=== PATIENT | female | born 1950 | race Two or more races ===

== ENCOUNTER 2016-05-08 15:39 | Emergency (ER) | payer MEDICARE, MEDICAID ==
[~2016-05-08] VITALS: Ht 162.6 cm; Wt 124.7 kg
[~2016-05-08 15:39] MED LIST: ALBUAER3 IN; ALPR0.5T PO; ASPI81CH43 GT; BIOT10004 PO; CARB25TA3 OR; CARV25TA OR; CLON0.1T OR; CYCL5TAB89 OR; DIPH25TA26 PO; DOCU-94 PO; DONETAB6 PO; FLUT250M9 IN; GABA300C OR; HYDR-2549 OR; HYDR-2652 PO; INSULIN; LEV500T PO; LISI10TA6 PO; PAR20T PO; QUET100T38 OR; RANI150C11 PO; TEMA30CA5 OR
[2016-05-08] MEDS ORDERED: LORazepam 2MG/ML-1ML VIAL IV ONE (16:30)
[2016-05-08 17:37] LABS: Albumin 2.7 g/dL (3.4-5.0); BUN/Creatinine Ratio 11.7; Calcium 8.1 mg/dL (8.5-10.1); Magnesium 2.7 mg/dL (1.6-2.6); Potassium 3.2 mmol/L (3.5-5.1)
[2016-05-08 17:40] LABS: Bilirubin, Total 0.4 mg/dL (0.2-1.0); Total Protein 7.1 g/dL (6.4-8.2)
[2016-05-08 17:45] LABS: Basophils # (auto) 0.1 uL; Basophils % (auto) 0.5 % (0.0-2.0); Eosinophils # (auto) 0.1 uL; Eosinophils % (auto) 1.1 % (0.0-7.0); Hematocrit 32.9 % (36.0-46.0); Hemoglobin 10.2 g/dL (12.2-16.2); Lymphocytes # (auto) 3.5 uL; Lymphocytes % (auto) 34.3 % (10.0-50.0); Mean Corpuscular Hemoglobin 27.3 pg (28.0-32.0); Mean Platelet Volume 10.4 fL (7.4-10.4); Monocytes # (auto) 1.1 uL; Monocytes % (auto) 10.4 % (0.0-12.0); Neutrophils # (auto) 5.5 uL; Neutrophils % (auto) 53.7 % (37.0-80.0); Platelet Count (auto) 267 10^3/uL (140-450); Red Cell Distribution Width 16.9 % (11.6-16.0); SUSPECT VIEW TRANSMISSION; White Blood Cell 10.3 10^3/uL (4.4-10.8)
[2016-05-08 18:00] LABS: INR 1.13 (0.9-1.15); Partial Thromboplastin Time 24.3 sec (22.64-33.71); Prothrombin Time 11.6 sec (9.37-12.3)
[2016-05-08] MEDS ORDERED: HYDROcodone-ACET 10/325MG TAB PO ONE (18:00)
[2016-05-08] MEDS ORDERED: POTASSIUM CHL 20 Meq TABLET PO ONE ×2 (18:45→21:45)
[2016-05-08] MEDS ORDERED: KETOROLAC TROMETH 30 MG/ML 1ML VIAL IV ONE (21:45)
[2016-05-08] MEDS ORDERED: HYDROmorphone HCL 2 MG/ML VL IV ONE (21:45)
[2016-05-08 22:58] LABS: Urine Bilirubin Negative (Negative); Urine Blood Negative /uL (Negative); Urine Color Yellow (Yellow); Urine Glucose Normal (Normal); Urine Hyaline Cast MANY /lpf (0 - 2); Urine Ketone Negative (Negative); Urine Mucus FEW (None Seen); Urine Nitrite Negative (Negative); Urine RBC 2 /hpf (0 - 4); Urine Squamous Epithelial Cell MOD /hpf (<5); Urine Urobilinogen Normal (Negative); Urine pH 5.5 (5.0-8.0)
[2016-05-09 00:19] VITALS: BP 121/66
== END 2016-05-09 00:27 | disposition home or self-care (01) ==
LOC: ER 15:39
DX: F41.9 Anxiety disorder, unspecified (principal); D50.9 Iron deficiency anemia, unspecified; E87.6 Hypokalemia; E11.65 Type 2 diabetes mellitus with hyperglycemia; M54.9 Dorsalgia, unspecified; M19.90 Unspecified osteoarthritis, unspecified site; I25.10 Atherosclerotic heart disease of native coronary artery without angina pectoris; I50.9 Heart failure, unspecified; E11.22 Type 2 diabetes mellitus with diabetic chronic kidney disease; I13.0 Hypertensive heart and chronic kidney disease with heart failure and stage 1 through stage 4 chronic kidney disease, or unspecified chronic kidney disease; N18.9 Chronic kidney disease, unspecified; J44.9 Chronic obstructive pulmonary disease, unspecified; E78.5 Hyperlipidemia, unspecified; F17.210 Nicotine dependence, cigarettes, uncomplicated
CPT/HCPCS: 36415; 71010; 80053; 81001; 82962; 83735; 84484; 85025; 85610; 85730; 93005; 94761; 96374; 96375; 99285; G0434; J1170; J1885; J2060

== ENCOUNTER 2017-04-25 18:34 | Inpatient (IN) | payer MEDICARE, OTHER ==
[~2017-04-25] VITALS: Ht 165.1 cm; Wt 104.1 kg
[~2017-04-25 18:34] MED LIST changes: -HYDR-2652 PO; +HYDR50TA15 PO
[2017-04-25 19:14] LABS: Basophils # (auto) 0.1 uL; Basophils % (auto) 1.6 % (0.0-2.0); Eosinophils # (auto) 0.3 uL; Eosinophils % (auto) 4.1 % (0.0-7.0); Hematocrit 37.3 % (36.0-46.0); Hemoglobin 12.1 g/dL (12.2-16.2); Lymphocytes # (auto) 2.8 uL; Lymphocytes % (auto) 36.2 % (10.0-50.0); Mean Corpuscular Hemoglobin 29.4 pg (28.0-32.0); Mean Corpuscular Hgb Conc. 32.5 g/dL (32.0-36.0); Mean Corpuscular Volume 90.4 fL (80.0-100.0); Monocytes # (auto) 0.7 uL; Monocytes % (auto) 8.8 % (0.0-12.0); Neutrophils # (auto) 3.8 uL; Neutrophils % (auto) 49.3 % (37.0-80.0); Nucleated Red Blood Cells % 0.1 %; Platelet Count (auto) 273 10^3/uL (140-450); Red Blood Cells 4.12 10^6/uL (4.0-5.20); Red Cell Distribution Width 16.5 % (11.8-14.3); White Blood Cell 7.7 10^3/uL (4.4-10.8)
[2017-04-25 19:30] LABS: INR 0.97 (0.9-1.15); Partial Thromboplastin Time 24.9 sec (22.64-33.71); Prothrombin Time 10.6 sec (9.37-12.3)
[2017-04-25 19:31] LABS: Albumin 2.9 g/dL (3.4-5.0); BUN/Creatinine Ratio 15.2; Bilirubin, Total 0.4 mg/dL (0.2-1.0); Calcium 8.7 mg/dL (8.5-10.1); Potassium 3.3 mmol/L (3.5-5.1)
[2017-04-25] MEDS ORDERED: ASPirin 81 mg TAB PO ONE (20:15)
[2017-04-25] MEDS ORDERED: HYDROcodone-ACET 5/325MG TAB PO ONE (20:15)
[2017-04-25 21:18] LABS: Urine Bacteria FEW /hpf (None Seen); Urine Blood TRACE /uL (Negative); Urine Hyaline Cast FEW /lpf (0 - 2); Urine Specific Gravity 1.007 (1.001-1.035); Urine WBC 3 /hpf (0 - 5)
[2017-04-25 21:35] LABS: Alcohol, Urine < 3.0 mg/dL (0-5); Amphetamine Screen, Urine NEGATIVE (NEGATIVE); Barbiturate Scree,Urine NEGATIVE (NEGATIVE); Benzodiazephine Screen, Urine NEGATIVE (NEGATIVE); Cannabinoid Screen, Urine NEGATIVE (NEGATIVE); Cocaine Screen, Urine NEGATIVE (NEGATIVE); Opiate Scree,Urine NEGATIVE (NEGATIVE); Phencyclidine Screen, Urine NEGATIVE (NEGATIVE)
[2017-04-25] MEDS ORDERED: NALBUPHINE HCL 10 MG/1ml INJECTION IV ONE (23:45)
[2017-04-25] MEDS ORDERED: PANTOPRAZOLE 40 MG/10 ML VIAL IV ONE (23:45)
[2017-04-25] MEDS ORDERED: ONDANSETRON HCL 4 MG/2 ML VIAL IV ONE (23:45)
[2017-04-26] MEDS ORDERED: METOPROLOL TARTRATE 50 MG TAB PO ONE (00:15)
[2017-04-26] MEDS ORDERED: ACETAMINOPHEN 500 MG TAB PO PRN (03:00)
[2017-04-26] MEDS ORDERED: ONDANSETRON HCL 4 MG/2 ML VIAL IV PRN (03:00)
[2017-04-26] MEDS ORDERED: LABETALOL HCL 200 MG TAB PO ONE (03:15)
[2017-04-26 03:51] LABS: Basophils # (auto) 0.1 uL; Basophils % (auto) 1.4 % (0.0-2.0); Eosinophils # (auto) 0.4 uL; Hematocrit 33.5 % (36.0-46.0); Hemoglobin 11.2 g/dL (12.2-16.2); Lymphocytes # (auto) 3.9 uL; Lymphocytes % (auto) 38.8 % (10.0-50.0); Mean Corpuscular Hemoglobin 29.7 pg (28.0-32.0); Mean Corpuscular Hgb Conc. 33.3 g/dL (32.0-36.0); Mean Corpuscular Volume 89.1 fL (80.0-100.0); Monocytes % (auto) 9.6 % (0.0-12.0); Neutrophils # (auto) 4.6 uL; Neutrophils % (auto) 46.2 % (37.0-80.0); Nucleated Red Blood Cells % 0.1 %; Platelet Count (auto) 251 10^3/uL (140-450); Red Blood Cells 3.76 10^6/uL (4.0-5.20); Red Cell Distribution Width 16.7 % (11.8-14.3); White Blood Cell 10.1 10^3/uL (4.4-10.8)
[2017-04-26 04:06] LABS: BUN/Creatinine Ratio 18.2; Calcium 8.4 mg/dL (8.5-10.1); Potassium 3.4 mmol/L (3.5-5.1)
[2017-04-26] MEDS ORDERED: FUROSEMIDE 40 MG/4 ML VIAL IV ONE (04:45)
[2017-04-26] MEDS ORDERED: POTASSIUM CHL 20 Meq TABLET PO ONE ×2 (04:45→14:45)
[2017-04-26] MEDS ORDERED: DEXTROSE (50%) 50ML SYRG IV PRN (04:45)
[2017-04-26] MEDS: hydrALAZINE HCL 25 MG TAB PO SCH ×3 (06:00→22:02)
[2017-04-26] MEDS: HYDROcodone-ACET 5/325MG TAB PO PRN ×3 (06:04→22:15)
[2017-04-26] MEDS: cloNIDine HCL 0.1 MG TAB PO SCH ×3 (06:04→22:01)
[2017-04-26] MEDS ORDERED: ALUM & MAG HYDROX-SIMETH LIQ(MAALOX) 30 ML PO PRN (06:15)
[2017-04-26] MEDS: ACCU-CHEK COMFORT CURVE STRIP VI SCH ×4 (06:16→22:03)
[2017-04-26] MEDS: InsuLIN REG 1unit/0.01ml Soln (100units/ml) SC SCH ×4 (06:16→22:08)
[2017-04-26] MEDS: CARVEDILOL 3.125 MG TAB PO SCH ×2 (09:56→22:02)
[2017-04-26] MEDS: ASPirin-EC 81 mg tab PO SCH (09:57)
[2017-04-26] MEDS: LISINOPRIL 10 MG TAB PO SCH (09:59)
[2017-04-26] MEDS ORDERED: LISINOPRIL 5 MG TAB ONE (09:59)
[2017-04-26] MEDS ORDERED: LORA-654 PO (14:03)
[2017-04-26] MEDS ORDERED: FURO20TA3 PO (14:03)
[2017-04-26] MEDS ORDERED: HYDR25TA35 PO (14:03)
[2017-04-26] MEDS ORDERED: IBUP800T24 PO (14:03)
[2017-04-26] MEDS ORDERED: CLOP75TA41 PO (14:03)
[2017-04-26] MEDS ORDERED: TEMA30CA PO (14:03)
[2017-04-26 17:22] VITALS: BP 141/66
[2017-04-26] MEDS: ALUM & MAG HYDROX-SIMETH LIQ(MAALOX) 30 ML PO PRN (17:43)
[2017-04-26 20:00] VITALS: BP 126/79
[2017-04-26 22:00] VITALS: BP 126/79
[2017-04-26] MEDS: DONEPEZIL HYDROCHLORIDE 5 MG TAB PO SCH (22:03)
[2017-04-26] MEDS: CARBIDOPA W LEVODOPA 25/100mg TABLET PO SCH (22:04)
[2017-04-26] MEDS: TEMAZEPAM 15 MG CAP PO PRN (22:15)
[2017-04-27 05:46] VITALS: BP 147/64
[2017-04-27] MEDS: hydrALAZINE HCL 25 MG TAB PO SCH ×3 (05:50→21:32)
[2017-04-27] MEDS: cloNIDine HCL 0.1 MG TAB PO SCH ×3 (05:50→21:29)
[2017-04-27] MEDS: LORazepam 0.5 MG TAB PO PRN ×2 (05:50→20:42)
[2017-04-27] MEDS: CARBIDOPA W LEVODOPA 25/100mg TABLET PO SCH ×3 (05:51→21:32)
[2017-04-27] MEDS: InsuLIN REG 1unit/0.01ml Soln (100units/ml) SC SCH ×4 (05:55→21:33)
[2017-04-27] MEDS: ACCU-CHEK COMFORT CURVE STRIP VI SCH ×4 (05:55→21:33)
[2017-04-27 06:51] LABS: Basophils # (auto) 0.1 uL; Basophils % (auto) 1.1 % (0.0-2.0); Eosinophils # (auto) 0.3 uL; Eosinophils % (auto) 3.7 % (0.0-7.0); Hematocrit 36.6 % (36.0-46.0); Hemoglobin 11.7 g/dL (12.2-16.2); Lymphocytes % (auto) 37.7 % (10.0-50.0); Mean Corpuscular Hemoglobin 29.2 pg (28.0-32.0); Mean Corpuscular Volume 91.1 fL (80.0-100.0); Monocytes # (auto) 0.7 uL; Monocytes % (auto) 8.5 % (0.0-12.0); Neutrophils # (auto) 3.9 uL; Nucleated Red Blood Cells % 0.1 %; Platelet Count (auto) 246 10^3/uL (140-450); Red Blood Cells 4.02 10^6/uL (4.0-5.20); Red Cell Distribution Width 16.9 % (11.8-14.3); White Blood Cell 7.8 10^3/uL (4.4-10.8)
[2017-04-27] MEDS: ALUM & MAG HYDROX-SIMETH LIQ(MAALOX) 30 ML PO PRN (07:00)
[2017-04-27 07:08] LABS: BUN/Creatinine Ratio 21.2; Magnesium 2.2 mg/dL (1.6-2.6); Potassium 4.3 mmol/L (3.5-5.1)
[2017-04-27 07:45] VITALS: BP 144/76
[2017-04-27] MEDS: CLOPIDOGREL BISULFATE 75 MG TAB PO SCH (10:22)
[2017-04-27] MEDS: CARVEDILOL 3.125 MG TAB PO SCH ×2 (10:23→21:31)
[2017-04-27] MEDS: LISINOPRIL 10 MG TAB PO SCH (10:23)
[2017-04-27] MEDS ORDERED: IOHEXOL 350 MG/ML 100ML IJ ONE (10:42)
[2017-04-27] MEDS ORDERED: LIDOCAINE 2%HCL (LOCAL ANESTH.) INJ 20ML MDV ONE (10:42)
[2017-04-27] MEDS ORDERED: SODIUM CHL 0.9% 50 ML ONE (11:06)
[2017-04-27] MEDS ORDERED: fentaNYL CITRATE 100 MCG/2 ML VL ONE (11:06)
[2017-04-27] MEDS ORDERED: MIDAZOLAM HCL 1MG/1ML-2 ML VIAL ONE (11:06)
[2017-04-27] MEDS ORDERED: ANGIOMAX 250 MG VIAL IV ONE (11:07)
[2017-04-27] MEDS ORDERED: ATROPINE SULF 0.5 MG/5ML SYR ONE (11:26)
[2017-04-27 12:00] VITALS: BP 156/83
[2017-04-27] MEDS: ASPirin-EC 81 mg tab PO SCH (14:15)
[2017-04-27] MEDS: FUROSEMIDE 40 MG/4 ML VIAL IV SCH (14:17)
[2017-04-27 16:57] VITALS: BP 154/59
[2017-04-27] MEDS: TEMAZEPAM 15 MG CAP PO PRN (21:22)
[2017-04-27] MEDS: DONEPEZIL HYDROCHLORIDE 5 MG TAB PO SCH (21:32)
[2017-04-27 22:00] VITALS: BP 136/95
[2017-04-27] MEDS: HYDROcodone-ACET 5/325MG TAB PO PRN (23:10)
[2017-04-28] MEDS: ALUM & MAG HYDROX-SIMETH LIQ(MAALOX) 30 ML PO PRN (02:19)
[2017-04-28 05:24] VITALS: BP 146/69
[2017-04-28] MEDS: CARBIDOPA W LEVODOPA 25/100mg TABLET PO SCH (06:16)
[2017-04-28] MEDS: hydrALAZINE HCL 25 MG TAB PO SCH (06:17)
[2017-04-28] MEDS: InsuLIN REG 1unit/0.01ml Soln (100units/ml) SC SCH ×2 (06:18→12:40)
[2017-04-28] MEDS: cloNIDine HCL 0.1 MG TAB PO SCH (06:18)
[2017-04-28] MEDS: LORazepam 0.5 MG TAB PO PRN (06:20)
[2017-04-28] MEDS: ACCU-CHEK COMFORT CURVE STRIP VI SCH ×2 (06:22→12:40)
[2017-04-28 08:00] VITALS: BP 163/77
[2017-04-28] MEDS: FUROSEMIDE 40 MG/4 ML VIAL IV SCH (10:00)
[2017-04-28] MEDS: LISINOPRIL 10 MG TAB PO SCH (10:36)
[2017-04-28] MEDS: ASPirin-EC 81 mg tab PO SCH (10:36)
[2017-04-28] MEDS: CLOPIDOGREL BISULFATE 75 MG TAB PO SCH (10:37)
[2017-04-28] MEDS: CARVEDILOL 3.125 MG TAB PO SCH (10:37)
[2017-04-28 12:00] VITALS: BP 154/74
== END 2017-04-28 14:00 | disposition home health service (06) | DRG 246 ==
LOC: ER 18:34 → TELE 18:35 → WEST WING 04-26 13:14 → TELE-WESTW 04-26 14:40
PROVIDERS: ADMIT Nurse Practitioner Family; ATTEND Nurse Practitioner Acute Care
PROC: 027034Z Dilation of Coronary Artery, One Artery with Drug-eluting Intraluminal Device, Percutaneous Approach (ICD-10-PCS; principal; 2017-04-27)
PROC: 4A023N7 Measurement of Cardiac Sampling and Pressure, Left Heart, Percutaneous Approach (ICD-10-PCS; 2017-04-27)
PROC: B2151ZZ Fluoroscopy of Left Heart using Low Osmolar Contrast (ICD-10-PCS; 2017-04-27)
DX: I21.4 Non-ST elevation (NSTEMI) myocardial infarction (principal); I50.33 Acute on chronic diastolic (congestive) heart failure; E11.22 Type 2 diabetes mellitus with diabetic chronic kidney disease; E11.42 Type 2 diabetes mellitus with diabetic polyneuropathy; I13.0 Hypertensive heart and chronic kidney disease with heart failure and stage 1 through stage 4 chronic kidney disease, or unspecified chronic kidney disease; I25.10 Atherosclerotic heart disease of native coronary artery without angina pectoris; E87.6 Hypokalemia; E03.9 Hypothyroidism, unspecified; E11.65 Type 2 diabetes mellitus with hyperglycemia; E66.9 Obesity, unspecified; Z68.38 Body mass index [BMI] 38.0-38.9, adult; E78.5 Hyperlipidemia, unspecified; F03.90 Unspecified dementia, unspecified severity, without behavioral disturbance, psychotic disturbance, mood disturbance, and anxiety; F17.210 Nicotine dependence, cigarettes, uncomplicated; F20.9 Schizophrenia, unspecified; F32.9 Major depressive disorder, single episode, unspecified; G20 Parkinson's disease; G47.33 Obstructive sleep apnea (adult) (pediatric); G89.29 Other chronic pain; B19.20 Unspecified viral hepatitis C without hepatic coma; M19.90 Unspecified osteoarthritis, unspecified site; M54.5 Low back pain; R26.81 Unsteadiness on feet; K74.60 Unspecified cirrhosis of liver; E78.00 Pure hypercholesterolemia, unspecified; J44.9 Chronic obstructive pulmonary disease, unspecified; N18.9 Chronic kidney disease, unspecified; R29.6 Repeated falls; G47.00 Insomnia, unspecified; F41.9 Anxiety disorder, unspecified; Z53.21 Procedure and treatment not carried out due to patient leaving prior to being seen by health care provider; F40.240 Claustrophobia; R56.9 Unspecified convulsions; Z79.02 Long term (current) use of antithrombotics/antiplatelets; Z79.82 Long term (current) use of aspirin; Z79.899 Other long term (current) drug therapy; Z82.49 Family history of ischemic heart disease and other diseases of the circulatory system; Z83.3 Family history of diabetes mellitus; Z90.81 Acquired absence of spleen; Z95.1 Presence of aortocoronary bypass graft; Z88.5 Allergy status to narcotic agent; Z95.5 Presence of coronary angioplasty implant and graft; Z84.1 Family history of disorders of kidney and ureter
CPT/HCPCS: 36415; 70450; 71046; 80048; 80053; 80307; 81001; 82962; 83735; 83880; 84100; 84484; 85025; 85610; 85730; 86850; 86900; 86901; 87081; 92928; 93005; 93306; 93458; 94761; 96372; 96374; 96375; 99152; C1874; C1887; C9113; J0461; J1815; J2250; J2405

== ENCOUNTER 2017-07-14 13:10 | Inpatient (IN) | payer MEDICARE, OTHER ==
[~2017-07-14] VITALS: Ht 162.6 cm; Wt 106.5 kg
[~2017-07-14 13:10] MED LIST changes: -ALPR0.5T PO; +CLOP75TA41 PO; -DOCU-94 PO; +FURO20TA3 PO; +HYDR25TA35 PO; -HYDR50TA15 PO; +IBUP800T24 PO; -LISI10TA6 PO; +LORA-654 PO; -QUET100T38 OR; +TEMA30CA PO; -TEMA30CA5 OR
[2017-07-14 13:46] LABS: Basophils # (auto) 0.1 uL; Basophils % (auto) 1.1 % (0.0-2.0); Eosinophils # (auto) 0.2 uL; Eosinophils % (auto) 2.5 % (0.0-7.0); Hematocrit 38.1 % (36.0-46.0); Hemoglobin 12.5 g/dL (12.2-16.2); Lymphocytes # (auto) 2.5 uL; Lymphocytes % (auto) 33.5 % (10.0-50.0); Mean Corpuscular Hemoglobin 29.6 pg (28.0-32.0); Mean Corpuscular Hgb Conc. 32.8 g/dL (32.0-36.0); Mean Corpuscular Volume 90.4 fL (80.0-100.0); Monocytes # (auto) 0.7 uL; Neutrophils % (auto) 53.9 % (37.0-80.0); Platelet Count (auto) 247 10^3/uL (140-450); Red Blood Cells 4.21 10^6/uL (4.0-5.20); Red Cell Distribution Width 15.1 % (11.8-14.3); White Blood Cell 7.5 10^3/uL (4.4-10.8)
[2017-07-14 14:02] LABS: INR 0.98 (0.9-1.15); Partial Thromboplastin Time 22.6 sec (22.64-33.71); Prothrombin Time 10.7 sec (9.37-12.3)
[2017-07-14 14:10] LABS: Albumin 2.5 g/dL (3.4-5.0); BUN/Creatinine Ratio 12.4; Bilirubin, Total 0.3 mg/dL (0.2-1.0); Calcium 8.7 mg/dL (8.5-10.1); Potassium 3.7 mmol/L (3.5-5.1); Total Protein 7.3 g/dL (6.4-8.2)
[2017-07-14] MEDS ORDERED: ALBUTEROL SULF 2.5 MG/0.5ML(0.5%) NEB SOLN NEB PRN (15:45)
[2017-07-14] MEDS ORDERED: ACETAMINOPHEN 500 MG TAB PO PRN (15:45)
[2017-07-14] MEDS ORDERED: DEXTROSE (50%) 50ML SYRG IV PRN (15:45)
[2017-07-14] MEDS ORDERED: TEMAZEPAM 15 MG CAP PO PRN (15:45)
[2017-07-14] MEDS ORDERED: NITROGLYCERIN 0.4 MG SL TAB SL PRN (15:45)
[2017-07-14] MEDS: SODIUM CHLOR 0.9% PF (SALINE LOCK) 10ML VIAL/SYR IV SCH (15:59)
[2017-07-14] MEDS ORDERED: CARV6.2551 PO (16:04)
[2017-07-14] MEDS: FUROSEMIDE 40 MG/4 ML VIAL IV SCH (16:04)
[2017-07-14] MEDS: HYDROcodone-ACET 5/325MG TAB PO PRN (16:17)
[2017-07-14] MEDS: ENOXAPARIN SOD 40 MG/0.4 ML SYRINGE SC SCH (16:17)
[2017-07-14] MEDS: ENALAPRIL MALEATE 2.5 MG TAB PO SCH (16:17)
[2017-07-14 17:00] LABS: Amylase 41 U/L (25-115); Lipase 111 U/L (73-393)
[2017-07-14] MEDS: ACCU-CHEK COMFORT CURVE STRIP VI SCH ×2 (17:57→21:48)
[2017-07-14] MEDS ORDERED: PATIENTS OWN MEDICATION (Albuterol Sulfate (Ventolin Mdi) 90 MCG) IN SCH (18:00)
[2017-07-14] MEDS: InsuLIN REG 1unit/0.01ml Soln (100units/ml) SC SCH ×2 (18:02→21:49)
[2017-07-14] MEDS: ALBUTEROL SULF 2.5 MG/0.5ML(0.5%) NEB SOLN NEB SCH (18:33)
[2017-07-14] MEDS: BUDESONIDE (INHALATION) 0.5 MG/2 ML NEB NEB SCH (18:33)
[2017-07-14] MEDS: IPRATROPIUM BROM 0.5 MG/2.5ML INH SOL NEB SCH (18:33)
[2017-07-14] MEDS: hydrALAZINE HCL 25 MG TAB PO SCH (21:46)
[2017-07-14] MEDS: LORazepam 0.5 MG TAB PO SCH (21:47)
[2017-07-14] MEDS: ATORVASTATIN 20 MG TAB PO SCH (21:47)
[2017-07-14] MEDS: HYDROmorphone HCL 2 MG/ML VL IV PRN ×2 (21:47→22:43)
[2017-07-14] MEDS: CARVEDILOL 3.125 MG TAB PO SCH (21:47)
[2017-07-14] MEDS: DONEPEZIL HYDROCHLORIDE 5 MG TAB PO SCH (21:47)
[2017-07-14] MEDS: CARBIDOPA W LEVODOPA 25/100mg TABLET PO SCH (21:48)
[2017-07-14] MEDS: GABAPENTIN 300 MG CAP PO SCH (21:48)
[2017-07-14 22:00] VITALS: BP 167/107
[2017-07-14] MEDS ORDERED: PATIENTS OWN MEDICATION IN SCH (22:00)
[2017-07-14 23:15] VITALS: BP 167/107
[2017-07-15] MEDS: ALBUTEROL SULF 2.5 MG/0.5ML(0.5%) NEB SOLN NEB SCH ×4 (01:55→18:27)
[2017-07-15] MEDS: IPRATROPIUM BROM 0.5 MG/2.5ML INH SOL NEB SCH ×4 (01:55→18:27)
[2017-07-15] MEDS: HYDROmorphone HCL 2 MG/ML VL IV PRN ×2 (02:02→09:59)
[2017-07-15 03:46] VITALS: BP 164/107
[2017-07-15 05:00] VITALS: BP 186/95
[2017-07-15] MEDS: hydrALAZINE HCL 25 MG TAB PO SCH ×3 (06:30→21:48)
[2017-07-15] MEDS: LORazepam 0.5 MG TAB PO SCH ×3 (06:30→21:49)
[2017-07-15] MEDS: SODIUM CHLOR 0.9% PF (SALINE LOCK) 10ML VIAL/SYR IV SCH ×3 (06:31→21:48)
[2017-07-15] MEDS: GABAPENTIN 300 MG CAP PO SCH ×3 (06:31→21:49)
[2017-07-15] MEDS: CARBIDOPA W LEVODOPA 25/100mg TABLET PO SCH ×3 (06:31→21:50)
[2017-07-15] MEDS: ACCU-CHEK COMFORT CURVE STRIP VI SCH ×4 (06:45→21:50)
[2017-07-15] MEDS: InsuLIN REG 1unit/0.01ml Soln (100units/ml) SC SCH ×4 (06:45→22:07)
[2017-07-15 08:23] LABS: BUN/Creatinine Ratio 16.1; Bilirubin, Total 0.3 mg/dL (0.2-1.0); Calcium 8.7 mg/dL (8.5-10.1); Potassium 3.6 mmol/L (3.5-5.1); Total Protein 7.1 g/dL (6.4-8.2)
[2017-07-15 08:24] LABS: Albumin 2.6 g/dL (3.4-5.0)
[2017-07-15 08:52] VITALS: BP 150/93
[2017-07-15] MEDS: CLOPIDOGREL BISULFATE 75 MG TAB PO SCH (09:26)
[2017-07-15] MEDS: POTASSIUM CHL 20 Meq TABLET PO SCH (09:26)
[2017-07-15] MEDS: ENOXAPARIN SOD 40 MG/0.4 ML SYRINGE SC SCH (09:26)
[2017-07-15] MEDS: ASPirin 81 mg TAB PO SCH (09:26)
[2017-07-15] MEDS: CYCLOBENZAPRINE HCL 10 MG TAB PO SCH (09:27)
[2017-07-15] MEDS: PARoxetine 20 MG TAB PO SCH (09:30)
[2017-07-15] MEDS: CARVEDILOL 3.125 MG TAB PO SCH ×2 (09:30→21:49)
[2017-07-15] MEDS: FUROSEMIDE 40 MG/4 ML VIAL IV SCH (09:31)
[2017-07-15] MEDS: ENALAPRIL MALEATE 2.5 MG TAB PO SCH (09:31)
[2017-07-15] MEDS: BIOTIN 10000 MCG PO SCH (09:31)
[2017-07-15] MEDS: BUDESONIDE (INHALATION) 0.5 MG/2 ML NEB NEB SCH ×2 (09:59→18:27)
[2017-07-15] MEDS ORDERED: CARVEDILOL 6.25 MG OR SCH (10:00)
[2017-07-15] MEDS ORDERED: CYCLOBENZAPRINE HCL 5 MG OR SCH (10:00)
[2017-07-15] MEDS ORDERED: FUROSEMIDE 20 MG TAB PO SCH (10:00)
[2017-07-15] MEDS ORDERED: PATIENTS OWN MEDICATION (Donepezil Hydrochloride (Donepezil Hcl) 10 MG) PO SCH (10:00)
[2017-07-15] MEDS: PROMETHAZINE HCL 25 MG/ML 1ML IV PRN (11:52)
[2017-07-15 13:17] VITALS: BP 130/77
[2017-07-15] MEDS: HYDROcodone-ACET 5/325MG TAB PO PRN ×2 (14:42→20:55)
[2017-07-15 17:21] VITALS: BP 130/53
[2017-07-15] MEDS: DONEPEZIL HYDROCHLORIDE 5 MG TAB PO SCH (21:48)
[2017-07-15] MEDS: ATORVASTATIN 20 MG TAB PO SCH (21:49)
[2017-07-15 22:00] VITALS: BP 129/78
[2017-07-16 03:14] VITALS: BP 137/58
[2017-07-16 05:30] VITALS: BP 137/58
[2017-07-16] MEDS: SODIUM CHLOR 0.9% PF (SALINE LOCK) 10ML VIAL/SYR IV SCH ×3 (06:01→21:32)
[2017-07-16] MEDS: hydrALAZINE HCL 25 MG TAB PO SCH (06:01)
[2017-07-16] MEDS: CARBIDOPA W LEVODOPA 25/100mg TABLET PO SCH ×3 (06:02→21:34)
[2017-07-16] MEDS: ACCU-CHEK COMFORT CURVE STRIP VI SCH ×4 (06:02→21:34)
[2017-07-16] MEDS: GABAPENTIN 300 MG CAP PO SCH ×3 (06:02→21:32)
[2017-07-16] MEDS: LORazepam 0.5 MG TAB PO SCH ×3 (06:02→21:33)
[2017-07-16] MEDS: InsuLIN REG 1unit/0.01ml Soln (100units/ml) SC SCH ×4 (06:16→21:34)
[2017-07-16] MEDS: IPRATROPIUM BROM 0.5 MG/2.5ML INH SOL NEB SCH ×5 (07:10→22:58)
[2017-07-16] MEDS: ALBUTEROL SULF 2.5 MG/0.5ML(0.5%) NEB SOLN NEB SCH ×3 (07:10→12:17)
[2017-07-16] MEDS: BUDESONIDE (INHALATION) 0.5 MG/2 ML NEB NEB SCH ×2 (07:10→22:59)
[2017-07-16 08:58] VITALS: BP 154/105
[2017-07-16] MEDS: PROMETHAZINE HCL 25 MG/ML 1ML IV PRN (09:53)
[2017-07-16] MEDS: FUROSEMIDE 40 MG/4 ML VIAL IV SCH (09:53)
[2017-07-16] MEDS: ENOXAPARIN SOD 40 MG/0.4 ML SYRINGE SC SCH (09:57)
[2017-07-16] MEDS: BIOTIN 10000 MCG PO SCH (09:59)
[2017-07-16] MEDS: ASPirin 81 mg TAB PO SCH (09:59)
[2017-07-16] MEDS: CYCLOBENZAPRINE HCL 10 MG TAB PO SCH (10:00)
[2017-07-16] MEDS: CARVEDILOL 3.125 MG TAB PO SCH ×2 (10:00→21:41)
[2017-07-16] MEDS: POTASSIUM CHL 20 Meq TABLET PO SCH (10:01)
[2017-07-16] MEDS: PARoxetine 20 MG TAB PO SCH (10:01)
[2017-07-16] MEDS: ENALAPRIL MALEATE 2.5 MG TAB PO SCH (10:02)
[2017-07-16] MEDS: CLOPIDOGREL BISULFATE 75 MG TAB PO SCH (10:02)
[2017-07-16] MEDS: HYDROcodone-ACET 5/325MG TAB PO PRN (10:03)
[2017-07-16 11:06] LABS: Urine Bacteria FEW /hpf (None Seen); Urine Blood Negative /uL (Negative); Urine Hyaline Cast MOD /lpf (0 - 2); Urine Mucus FEW (None Seen); Urine Specific Gravity 1.019 (1.001-1.035); Urine WBC 40 /hpf (0 - 5)
[2017-07-16] MEDS ORDERED: cefTRIAXone 1GM/10ml IVPUSH 10 ML IV ONE (11:30)
[2017-07-16] MEDS ORDERED: POTASSIUM CHL 20 Meq TABLET PO ONE (13:15)
[2017-07-16] MEDS ORDERED: CARVEDILOL 3.125 MG TAB PO ONE (13:15)
[2017-07-16] MEDS ORDERED: FUROSEMIDE 40 MG/4 ML VIAL IV ONE (13:15)
[2017-07-16 17:01] VITALS: BP 154/74
[2017-07-16] MEDS: HYDROmorphone HCL 2 MG/ML VL IV PRN ×2 (19:59→23:59)
[2017-07-16] MEDS: DONEPEZIL HYDROCHLORIDE 5 MG TAB PO SCH (21:33)
[2017-07-16] MEDS ORDERED: ATORVASTATIN 20 MG TAB PO SCH (22:00)
[2017-07-16 22:06] VITALS: BP 186/90
[2017-07-17] MEDS ORDERED: cloNIDine HCL 0.1 MG TAB PO ONE (01:00)
[2017-07-17 04:33] VITALS: BP 162/80
[2017-07-17] MEDS: IPRATROPIUM BROM 0.5 MG/2.5ML INH SOL NEB SCH ×2 (05:57→11:04)
[2017-07-17] MEDS: BUDESONIDE (INHALATION) 0.5 MG/2 ML NEB NEB SCH (05:59)
[2017-07-17] MEDS: LORazepam 0.5 MG TAB PO SCH ×2 (06:06→14:52)
[2017-07-17] MEDS: SODIUM CHLOR 0.9% PF (SALINE LOCK) 10ML VIAL/SYR IV SCH ×2 (06:06→14:52)
[2017-07-17] MEDS: GABAPENTIN 300 MG CAP PO SCH ×2 (06:07→14:53)
[2017-07-17] MEDS: CARBIDOPA W LEVODOPA 25/100mg TABLET PO SCH ×2 (06:07→14:53)
[2017-07-17] MEDS: cloNIDine HCL 0.1 MG TAB PO SCH ×2 (06:07→14:53)
[2017-07-17] MEDS: InsuLIN REG 1unit/0.01ml Soln (100units/ml) SC SCH ×2 (06:20→11:56)
[2017-07-17] MEDS: HYDROmorphone HCL 2 MG/ML VL IV PRN ×2 (06:20→12:39)
[2017-07-17] MEDS: ACCU-CHEK COMFORT CURVE STRIP VI SCH ×2 (06:21→11:46)
[2017-07-17] MEDS: HYDROcodone-ACET 5/325MG TAB PO PRN (08:53)
[2017-07-17 09:00] VITALS: BP 130/71
[2017-07-17] MEDS ORDERED: cefTRIAXone 1GM/10ml IVPUSH 10 ML IV SCH (09:00)
[2017-07-17] MEDS: ENOXAPARIN SOD 40 MG/0.4 ML SYRINGE SC SCH (10:27)
[2017-07-17] MEDS: ENALAPRIL MALEATE 2.5 MG TAB PO SCH (10:30)
[2017-07-17] MEDS: CLOPIDOGREL BISULFATE 75 MG TAB PO SCH (10:31)
[2017-07-17] MEDS: ASPirin 81 mg TAB PO SCH (10:31)
[2017-07-17] MEDS: POTASSIUM CHL 20 Meq TABLET PO SCH (10:32)
[2017-07-17] MEDS: CYCLOBENZAPRINE HCL 10 MG TAB PO SCH (10:32)
[2017-07-17] MEDS: FUROSEMIDE 40 MG/4 ML VIAL IV SCH (10:33)
[2017-07-17] MEDS: CARVEDILOL 3.125 MG TAB PO SCH (10:34)
[2017-07-17] MEDS: PARoxetine 20 MG TAB PO SCH (10:35)
[2017-07-17] MEDS: BIOTIN 10000 MCG PO SCH (10:43)
[2017-07-17 11:34] VITALS: BP 130/71
[2017-07-17] MEDS: PROMETHAZINE HCL 25 MG/ML 1ML IV PRN (12:39)
[2017-07-17 13:00] VITALS: BP 126/90
== END 2017-07-17 15:20 | disposition home health service (06) | DRG 291 ==
LOC: EDBD 13:10 → ER 13:10 → EDUNIT# 13:10 → TELE 13:11 → TELE-CENTR 20:27
PROVIDERS: ADMIT Internal Medicine; ATTEND Family Medicine
DX: I13.0 Hypertensive heart and chronic kidney disease with heart failure and stage 1 through stage 4 chronic kidney disease, or unspecified chronic kidney disease (principal); I50.43 Acute on chronic combined systolic (congestive) and diastolic (congestive) heart failure; E11.22 Type 2 diabetes mellitus with diabetic chronic kidney disease; E11.42 Type 2 diabetes mellitus with diabetic polyneuropathy; J44.1 Chronic obstructive pulmonary disease with (acute) exacerbation; N39.0 Urinary tract infection, site not specified; Z68.41 Body mass index [BMI] 40.0-44.9, adult; I50.30 Unspecified diastolic (congestive) heart failure; G20 Parkinson's disease; Z99.81 Dependence on supplemental oxygen; I25.10 Atherosclerotic heart disease of native coronary artery without angina pectoris; E66.01 Morbid (severe) obesity due to excess calories; N18.9 Chronic kidney disease, unspecified; E78.00 Pure hypercholesterolemia, unspecified; F32.9 Major depressive disorder, single episode, unspecified; F17.210 Nicotine dependence, cigarettes, uncomplicated; D64.9 Anemia, unspecified; E78.5 Hyperlipidemia, unspecified; F41.9 Anxiety disorder, unspecified; M19.90 Unspecified osteoarthritis, unspecified site; M54.9 Dorsalgia, unspecified; G89.29 Other chronic pain; I25.2 Old myocardial infarction; Z82.49 Family history of ischemic heart disease and other diseases of the circulatory system; Z83.3 Family history of diabetes mellitus; Z90.81 Acquired absence of spleen; Z91.19 Patient's noncompliance with other medical treatment and regimen; Z95.5 Presence of coronary angioplasty implant and graft; Z88.5 Allergy status to narcotic agent; R07.89 Other chest pain
CPT/HCPCS: 36415; 71045; 74176; 80053; 80061; 81001; 82150; 82550; 82962; 83036; 83690; 83735; 83880; 84443; 84484; 85025; 85610; 85730; 87040; 87081; 87086; 93005; 94640; 99291; J1815

== ENCOUNTER → 2017-08-18 | Outpatient (CLI) | payer MEDICARE, OTHER ==
[~2017-08-18] MED LIST changes: -CARV25TA OR; +CARV6.2551 PO
[2017-08-18 12:11] LABS: Urine Bacteria FEW /hpf (None Seen); Urine Blood 1+ /uL (Negative); Urine Specific Gravity 1.016 (1.001-1.035); Urine WBC 58 /hpf (0 - 5)
[2017-08-18 12:16] LABS: Basophils # (auto) 0.1 uL; Basophils % (auto) 1.1 % (0.0-2.0); Eosinophils # (auto) 0.3 uL; Eosinophils % (auto) 3.4 % (0.0-7.0); Hematocrit 37.4 % (36.0-46.0); Hemoglobin 12.2 g/dL (12.2-16.2); Lymphocytes # (auto) 2.5 uL; Lymphocytes % (auto) 32.7 % (10.0-50.0); Mean Corpuscular Hemoglobin 29.3 pg (28.0-32.0); Mean Corpuscular Hgb Conc. 32.6 g/dL (32.0-36.0); Mean Corpuscular Volume 89.6 fL (80.0-100.0); Monocytes # (auto) 0.6 uL; Neutrophils # (auto) 4.1 uL; Neutrophils % (auto) 54.8 % (37.0-80.0); Platelet Count (auto) 254 10^3/uL (140-450); Red Blood Cells 4.17 10^6/uL (4.0-5.20); White Blood Cell 7.5 10^3/uL (4.4-10.8)
[2017-08-18 13:39] LABS: Albumin 2.6 g/dL (3.4-5.0); BUN/Creatinine Ratio 15.1; Bilirubin, Total 0.5 mg/dL (0.2-1.0); Calcium 8.4 mg/dL (8.5-10.1); Potassium 3.6 mmol/L (3.5-5.1); Total Protein 7.8 g/dL (6.4-8.2)
== END | disposition home or self-care (01) ==
LOC: LAB 11:39
PROVIDERS: ATTEND Nurse Practitioner
DX: E11.22 Type 2 diabetes mellitus with diabetic chronic kidney disease (principal); I12.9 Hypertensive chronic kidney disease with stage 1 through stage 4 chronic kidney disease, or unspecified chronic kidney disease; N18.9 Chronic kidney disease, unspecified; E78.5 Hyperlipidemia, unspecified; F17.210 Nicotine dependence, cigarettes, uncomplicated
CPT/HCPCS: 36415; 80053; 80061; 81001; 82043; 83036; 85025

== ENCOUNTER 2017-12-10 11:50 | Inpatient (IN) | payer MEDICARE, OTHER ==
[~2017-12-10] VITALS: Ht 165.1 cm; Wt 100.3 kg
[~2017-12-10 11:50] MED LIST changes: +HYDR-4296 PO; -HYDR25TA35 PO
[2017-12-10] MEDS ORDERED: ASPirin 81 mg TAB PO ONE (12:15)
[2017-12-10 13:51] LABS: Basophils # (auto) 0 uL; Basophils % (auto) 0.5 % (0.0-2.0); Eosinophils # (auto) 0.3 uL; Eosinophils % (auto) 4.4 % (0.0-7.0); Hematocrit 32.5 % (36.0-46.0); Lymphocytes # (auto) 2.1 uL; Lymphocytes % (auto) 29.1 % (10.0-50.0); Mean Corpuscular Hemoglobin 31.7 pg (28.0-32.0); Mean Corpuscular Hgb Conc. 33.7 g/dL (32.0-36.0); Mean Corpuscular Volume 93.9 fL (80.0-100.0); Monocytes # (auto) 0.6 uL; Monocytes % (auto) 9.2 % (0.0-12.0); Neutrophils % (auto) 56.8 % (37.0-80.0); Platelet Count (auto) 253 10^3/uL (140-450); Red Blood Cells 3.46 10^6/uL (4.0-5.20); Red Cell Distribution Width 15.7 % (11.8-14.3); White Blood Cell 7.1 10^3/uL (4.4-10.8)
[2017-12-10 14:13] LABS: BUN/Creatinine Ratio 16.8; Bilirubin, Total 0.4 mg/dL (0.2-1.0); Calcium 8.4 mg/dL (8.5-10.1); Magnesium 2.6 mg/dL (1.6-2.6); Potassium 3.9 mmol/L (3.5-5.1); Total Protein 7.6 g/dL (6.4-8.2)
[2017-12-10 15:57] LABS: Alcohol, Urine < 3.0 mg/dL (0-5); Amphetamine Screen, Urine NEGATIVE (NEGATIVE); Barbiturate Scree,Urine NEGATIVE (NEGATIVE); Benzodiazephine Screen, Urine NEGATIVE (NEGATIVE); Cannabinoid Screen, Urine NEGATIVE (NEGATIVE); Cocaine Screen, Urine NEGATIVE (NEGATIVE); Opiate Scree,Urine NEGATIVE (NEGATIVE); Phencyclidine Screen, Urine NEGATIVE (NEGATIVE)
[2017-12-10] MEDS ORDERED: HYDROmorphone HCL 2 MG/ML VL IV ONE (16:15)
[2017-12-10] MEDS ORDERED: ONDANSETRON HCL 4 MG/2 ML VIAL IV ONE (16:15)
[2017-12-10] MEDS ORDERED: DEXTROSE (50%) 50ML SYRG IV PRN (17:15)
[2017-12-10] MEDS ORDERED: cloNIDine HCL 0.1 MG TAB PO ONE (18:00)
[2017-12-10] MEDS ORDERED: FUROSEMIDE 40 MG TAB PO ONE (18:15)
[2017-12-10] MEDS ORDERED: LORazepam 0.5 MG TAB PO PRN (18:15)
[2017-12-10] MEDS ORDERED: ZOLPIDEM TARTRATE 5 MG TAB PO PRN (18:15)
[2017-12-10] MEDS ORDERED: NITROGLYCERIN 0.4 MG SL TAB SL PRN ×2 (18:15)
[2017-12-10] MEDS ORDERED: HYDROmorphone HCL 2 MG/ML VL IV PRN (18:15)
[2017-12-10] MEDS ORDERED: ACETAMINOPHEN 325 MG TAB PO PRN (18:15)
[2017-12-10] MEDS ORDERED: POTASSIUM CHL 10 Meq TABLET PO ONE (18:15)
[2017-12-10] MEDS ORDERED: ONDANSETRON HCL 4 MG/2 ML VIAL IV PRN (18:15)
[2017-12-10] MEDS ORDERED: IBUPROFEN 800 MG TAB PO PRN (18:15)
[2017-12-10] MEDS ORDERED: cefTRIAXone 1GM/10ml IVPUSH 10 ML IV ONE (18:15)
[2017-12-10] MEDS ORDERED: AZITHROMYCIN 500MG/ 250ML 250 ML IV ONE (18:15)
[2017-12-10] MEDS ORDERED: ALUM & MAG HYDROX-SIMETH LIQ(MAALOX) 30 ML PO ONE (18:15)
[2017-12-10] MEDS: ENOXAPARIN SOD 100 MG/1 ML SYRINGE SC SCH (19:13)
[2017-12-10] MEDS: SODIUM CHLOR 0.9% PF (SALINE LOCK) 10ML VIAL/SYR IV SCH (22:06)
[2017-12-10] MEDS: hydrALAZINE HCL 25 MG TAB PO SCH (22:47)
[2017-12-10] MEDS: ATORVASTATIN 20 MG TAB PO SCH (22:48)
[2017-12-10] MEDS: CARVEDILOL 3.125 MG TAB PO SCH (22:48)
[2017-12-10] MEDS: ENALAPRIL MALEATE 2.5 MG TAB PO SCH (22:49)
[2017-12-10] MEDS: oxyCODONE ER 10 MG TAB PO SCH (22:49)
[2017-12-10] MEDS: InsuLIN REG 1unit/0.01ml Soln (100units/ml) SC SCH (22:50)
[2017-12-10] MEDS: ACCU-CHEK COMFORT CURVE STRIP VI SCH (22:50)
[2017-12-11] VITALS (7 sets, daily range): BP systolic 131–161; BP diastolic 42–63
[2017-12-11] MEDS ORDERED: IPRATROPIUM BROM 0.5 MG/2.5ML INH SOL ONE ×3 (00:01→11:01)
[2017-12-11] MEDS ORDERED: ONDANSETRON HCL 4 MG/2 ML VIAL IV PRN (02:00)
[2017-12-11] MEDS: HYDROmorphone HCL 2 MG/ML VL IV PRN ×3 (02:13→17:44)
[2017-12-11] MEDS ORDERED: hydrALAZINE HCL 25 MG TAB ONE (04:18)
[2017-12-11] MEDS ORDERED: ENOXAPARIN SOD 100 MG/1 ML SYRINGE SC ONE (04:18)
[2017-12-11] MEDS: hydrALAZINE HCL 25 MG TAB PO SCH ×3 (04:25→22:25)
[2017-12-11 05:23] LABS: Basophils # (auto) 0 uL; Basophils % (auto) 0.5 % (0.0-2.0); Eosinophils # (auto) 0.4 uL; Eosinophils % (auto) 4.2 % (0.0-7.0); Hematocrit 34.1 % (36.0-46.0); Hemoglobin 11.2 g/dL (12.2-16.2); Lymphocytes # (auto) 2.5 uL; Lymphocytes % (auto) 30.4 % (10.0-50.0); Mean Corpuscular Hgb Conc. 32.9 g/dL (32.0-36.0); Mean Corpuscular Volume 94.2 fL (80.0-100.0); Monocytes # (auto) 0.9 uL; Monocytes % (auto) 10.6 % (0.0-12.0); Neutrophils # (auto) 4.5 uL; Neutrophils % (auto) 54.3 % (37.0-80.0); Nucleated Red Blood Cells % 0.1 %; Platelet Count (auto) 253 10^3/uL (140-450); Red Blood Cells 3.62 10^6/uL (4.0-5.20); Red Cell Distribution Width 15.9 % (11.8-14.3); White Blood Cell 8.4 10^3/uL (4.4-10.8)
[2017-12-11 05:40] LABS: Albumin 3.1 g/dL (3.4-5.0); BUN/Creatinine Ratio 13.4; Bilirubin, Total 0.4 mg/dL (0.2-1.0); Calcium 8.4 mg/dL (8.5-10.1); Potassium 3.7 mmol/L (3.5-5.1); Total Protein 6.8 g/dL (6.4-8.2)
[2017-12-11] MEDS: ENOXAPARIN SOD 100 MG/1 ML SYRINGE SC SCH ×2 (05:41→17:42)
[2017-12-11] MEDS: SODIUM CHLOR 0.9% PF (SALINE LOCK) 10ML VIAL/SYR IV SCH ×3 (06:01→22:26)
[2017-12-11] MEDS: InsuLIN REG 1unit/0.01ml Soln (100units/ml) SC SCH ×4 (06:16→22:00)
[2017-12-11] MEDS: ACCU-CHEK COMFORT CURVE STRIP VI SCH ×4 (06:16→22:09)
[2017-12-11] MEDS ORDERED: ALBUTEROL SULF 2.5 MG/0.5ML(0.5%) NEB SOLN ONE ×3 (06:55→11:01)
[2017-12-11] MEDS: IPRATROPIUM BROM 0.5 MG/2.5ML INH SOL NEB SCH ×4 (07:30→19:55)
[2017-12-11] MEDS: ALBUTEROL SULF 2.5 MG/0.5ML(0.5%) NEB SOLN NEB SCH ×4 (07:30→19:55)
[2017-12-11] MEDS: Glucerna Carbsteady SHAKE Vanilla 8oz PO SCH ×3 (08:00→18:18)
[2017-12-11] MEDS: AZITHROMYCIN 500MG/ 250ML 250 ML IV SCH (10:00)
[2017-12-11] MEDS: cefTRIAXone 1GM/10ml IVPUSH 10 ML IV SCH (10:35)
[2017-12-11] MEDS: ASPirin 81 mg TAB PO SCH (10:36)
[2017-12-11] MEDS: DOCUSATE SOD 100 MG CAP PO SCH (10:36)
[2017-12-11] MEDS: CLOPIDOGREL BISULFATE 75 MG TAB PO SCH (10:36)
[2017-12-11] MEDS: FUROSEMIDE 40 MG TAB PO SCH (10:37)
[2017-12-11] MEDS: POTASSIUM CHL 10 Meq TABLET PO SCH (10:39)
[2017-12-11] MEDS: ENALAPRIL MALEATE 2.5 MG TAB PO SCH ×2 (10:40→22:24)
[2017-12-11] MEDS: oxyCODONE ER 10 MG TAB PO SCH ×2 (10:40→22:24)
[2017-12-11] MEDS: CARVEDILOL 3.125 MG TAB PO SCH ×2 (10:42→22:23)
[2017-12-11 10:45] LABS: Urine Bacteria NONE SEEN /hpf (None Seen); Urine Blood Negative /uL (Negative); Urine Mucus FEW (None Seen); Urine Specific Gravity 1.015 (1.001-1.035); Urine WBC 15 /hpf (0 - 5)
[2017-12-11] MEDS: ATORVASTATIN 20 MG TAB PO SCH (22:15)
[2017-12-12 00:16] VITALS: BP 93/67
[2017-12-12] MEDS: IPRATROPIUM BROM 0.5 MG/2.5ML INH SOL NEB SCH ×2 (00:24→06:15)
[2017-12-12] MEDS: ALBUTEROL SULF 2.5 MG/0.5ML(0.5%) NEB SOLN NEB SCH ×2 (00:24→06:15)
[2017-12-12 04:00] VITALS: BP 111/64
[2017-12-12] MEDS: hydrALAZINE HCL 25 MG TAB PO SCH (06:00)
[2017-12-12] MEDS: SODIUM CHLOR 0.9% PF (SALINE LOCK) 10ML VIAL/SYR IV SCH (06:00)
[2017-12-12] MEDS: ENOXAPARIN SOD 100 MG/1 ML SYRINGE SC SCH (06:00)
[2017-12-12 06:21] LABS: Potassium 3.7 mmol/L (3.5-5.1)
[2017-12-12 06:28] LABS: BUN/Creatinine Ratio 16.5; Calcium 8.2 mg/dL (8.5-10.1); Magnesium 2.1 mg/dL (1.6-2.6)
[2017-12-12] MEDS: InsuLIN REG 1unit/0.01ml Soln (100units/ml) SC SCH (07:00)
[2017-12-12] MEDS: ACCU-CHEK COMFORT CURVE STRIP VI SCH (07:00)
[2017-12-12 08:00] VITALS: BP 176/53
[2017-12-12] MEDS: Glucerna Carbsteady SHAKE Vanilla 8oz PO SCH (08:00)
[2017-12-12] MEDS ORDERED: ADENOSINE 84 MG in GIVE UN-DILUTED 0 ML IV STA (08:24)
[2017-12-12] MEDS: cefTRIAXone 1GM/10ml IVPUSH 10 ML IV SCH (09:00)
[2017-12-12] MEDS: CARVEDILOL 3.125 MG TAB PO SCH (09:45)
[2017-12-12] MEDS: ASPirin 81 mg TAB PO SCH (09:46)
[2017-12-12] MEDS: DOCUSATE SOD 100 MG CAP PO SCH (09:46)
[2017-12-12] MEDS: FUROSEMIDE 40 MG TAB PO SCH (09:46)
[2017-12-12] MEDS: AZITHROMYCIN 500MG/ 250ML 250 ML IV SCH (09:46)
[2017-12-12] MEDS: ENALAPRIL MALEATE 2.5 MG TAB PO SCH (09:46)
[2017-12-12] MEDS: oxyCODONE ER 10 MG TAB PO SCH (09:46)
[2017-12-12] MEDS: POTASSIUM CHL 10 Meq TABLET PO SCH (09:46)
[2017-12-12] MEDS: CLOPIDOGREL BISULFATE 75 MG TAB PO SCH (09:47)
== END 2017-12-12 10:15 | disposition left against medical advice (07) | DRG 280 ==
LOC: ER 11:50 → UNDOADMIN 11:51 → TELE 11:51 → DOU 11:51 → DOU IN ICU 12-11 03:42
PROVIDERS: ADMIT Nurse Practitioner Family; ATTEND Internal Medicine
DX: I21.4 Non-ST elevation (NSTEMI) myocardial infarction (principal); I50.43 Acute on chronic combined systolic (congestive) and diastolic (congestive) heart failure; J96.10 Chronic respiratory failure, unspecified whether with hypoxia or hypercapnia; I13.0 Hypertensive heart and chronic kidney disease with heart failure and stage 1 through stage 4 chronic kidney disease, or unspecified chronic kidney disease; E44.0 Moderate protein-calorie malnutrition; J45.901 Unspecified asthma with (acute) exacerbation; J44.0 Chronic obstructive pulmonary disease with (acute) lower respiratory infection; J44.1 Chronic obstructive pulmonary disease with (acute) exacerbation; J20.9 Acute bronchitis, unspecified; N18.2 Chronic kidney disease, stage 2 (mild); I13.10 Hypertensive heart and chronic kidney disease without heart failure, with stage 1 through stage 4 chronic kidney disease, or unspecified chronic kidney disease; I25.10 Atherosclerotic heart disease of native coronary artery without angina pectoris; Z99.81 Dependence on supplemental oxygen; E83.51 Hypocalcemia; E11.22 Type 2 diabetes mellitus with diabetic chronic kidney disease; D63.8 Anemia in other chronic diseases classified elsewhere; E78.5 Hyperlipidemia, unspecified; F17.210 Nicotine dependence, cigarettes, uncomplicated; F41.9 Anxiety disorder, unspecified; F32.9 Major depressive disorder, single episode, unspecified; M19.90 Unspecified osteoarthritis, unspecified site; E11.65 Type 2 diabetes mellitus with hyperglycemia; Z53.21 Procedure and treatment not carried out due to patient leaving prior to being seen by health care provider; G20 Parkinson's disease; Z82.49 Family history of ischemic heart disease and other diseases of the circulatory system; Z83.3 Family history of diabetes mellitus; Z86.73 Personal history of transient ischemic attack (TIA), and cerebral infarction without residual deficits; Z95.5 Presence of coronary angioplasty implant and graft; Z90.81 Acquired absence of spleen; Z98.49 Cataract extraction status, unspecified eye; Z98.51 Tubal ligation status; Z88.6 Allergy status to analgesic agent; Z68.36 Body mass index [BMI] 36.0-36.9, adult
CPT/HCPCS: 36415; 71046; 80048; 80053; 80061; 80307; 81001; 82962; 83036; 83735; 83880; 84443; 84484; 85025; 87081; 87086; 93005; 93306; 94640; 96374; 96375; 96376; J0153; J0696; J1815; J2405

== ENCOUNTER 2018-01-28 06:05 | Inpatient (IN) | payer MEDICARE, OTHER ==
[~2018-01-28] VITALS: Ht 175.3 cm; Wt 104.6 kg
[~2018-01-28 06:05] MED LIST changes: +PANT40TA2 PO
[2018-01-28] MEDS ORDERED: LORazepam 2MG/ML-1ML VIAL IV ONE (06:30)
[2018-01-28] MEDS ORDERED: SODIUM CHLORIDE 0.9% 1,000 ML IV ONE (07:11)
[2018-01-28] MEDS ORDERED: ASPirin 81 mg TAB PO ONE (07:15)
[2018-01-28] MEDS ORDERED: FUROSEMIDE 40 MG/4 ML VIAL IV ONE (07:45)
[2018-01-28] MEDS ORDERED: MORPHINE SULFATE 4 MG/ML SYR/VIAL IV ONE (07:45)
[2018-01-28 07:56] LABS: Potassium 3.8 mmol/L (3.5-5.1)
[2018-01-28 08:03] LABS: Basophils # (auto) 0 uL; Basophils % (auto) 0.5 % (0.0-2.0); Eosinophils # (auto) 0 uL; Eosinophils % (auto) 0.3 % (0.0-7.0); Hematocrit 33.6 % (36.0-46.0); Hemoglobin 11.1 g/dL (12.2-16.2); Lymphocytes # (auto) 1.8 uL; Lymphocytes % (auto) 19.1 % (10.0-50.0); Mean Corpuscular Hemoglobin 31.4 pg (28.0-32.0); Mean Corpuscular Hgb Conc. 33.1 g/dL (32.0-36.0); Mean Corpuscular Volume 94.9 fL (80.0-100.0); Monocytes # (auto) 0.4 uL; Monocytes % (auto) 3.9 % (0.0-12.0); Neutrophils # (auto) 7.3 uL; Neutrophils % (auto) 76.2 % (37.0-80.0); Nucleated Red Blood Cells % 0.2 %; Platelet Count (auto) 281 10^3/uL (140-450); Red Blood Cells 3.54 10^6/uL (4.0-5.20); Red Cell Distribution Width 15.3 % (11.8-14.3); White Blood Cell 9.5 10^3/uL (4.4-10.8)
[2018-01-28 08:07] LABS: BUN/Creatinine Ratio 6.8; Bilirubin, Total 0.7 mg/dL (0.2-1.0); Calcium 9.1 mg/dL (8.5-10.1); Total Protein 8.4 g/dL (6.4-8.2)
[2018-01-28 08:54] LABS: Urine Bacteria NONE SEEN /hpf (None Seen); Urine Blood 1+ /uL (Negative); Urine Hyaline Cast MANY /lpf (0 - 2); Urine Mucus FEW (None Seen); Urine WBC 6 /hpf (0 - 5)
[2018-01-28 08:59] LABS: INR 1.44 (0.9-1.15); Partial Thromboplastin Time 25.8 sec (23.78-33.04); Prothrombin Time 15.1 sec (9.27-12.13)
[2018-01-28] MEDS ORDERED: HEPARIN IN NS 1000U/500ML (2UNIT/ML) 500 ML BAG/KIT IV ONE (09:00)
[2018-01-28] MEDS ORDERED: HEPARIN SODIUM (PORCINE) 5000 UNITS/ML 1ML VIAL IV ONE (09:30)
[2018-01-28] MEDS ORDERED: IODIXANOL 320MG/ML 100ML BTL IV ONE ×2 (09:39→10:58)
[2018-01-28] MEDS ORDERED: LIDOCAINE 2%HCL (LOCAL ANESTH.) INJ 20ML MDV ONE (09:40)
[2018-01-28] MEDS ORDERED: MIDAZOLAM HCL 1MG/1ML-2 ML VIAL ONE (09:55)
[2018-01-28] MEDS ORDERED: SODIUM CHL 0.9% 0 ML ONE (09:55)
[2018-01-28] MEDS ORDERED: fentaNYL CITRATE 100 MCG/2 ML VL ONE (09:55)
[2018-01-28] MEDS ORDERED: ANGIOMAX 250 MG VIAL IV ONE (09:55)
[2018-01-28] MEDS ORDERED: HEPARIN DRIP/D5W 100UNITS/ML 250 ML IV SCH (10:00)
[2018-01-28 10:13] LABS: INR 1.53 (0.9-1.15); Partial Thromboplastin Time 24.6 sec (23.78-33.04)
[2018-01-28] MEDS ORDERED: LIDOCAINE 2%HCL (LOCAL ANESTH.) INJ 10ml MDV ONE (11:02)
[2018-01-28] MEDS ORDERED: NITROGLYCERIN 0.4 MG SL TAB SL PRN (11:45)
[2018-01-28] MEDS ORDERED: DEXTROSE (50%) 50ML SYRG IV PRN (12:15)
[2018-01-28 12:43] LABS: Alcohol, Urine < 3.0 mg/dL (0-5); Amphetamine Screen, Urine POSITIVE (NEGATIVE); Barbiturate Scree,Urine NEGATIVE (NEGATIVE); Benzodiazephine Screen, Urine POSITIVE (NEGATIVE); Cannabinoid Screen, Urine NEGATIVE (NEGATIVE); Cocaine Screen, Urine NEGATIVE (NEGATIVE); Opiate Scree,Urine POSITIVE (NEGATIVE); Phencyclidine Screen, Urine NEGATIVE (NEGATIVE)
[2018-01-28] MEDS ORDERED: LISINOPRIL 5 MG TAB PO ONE (12:45)
[2018-01-28 13:07] VITALS: BP 151/76
[2018-01-28] MEDS ORDERED: METOCLOPRAMIDE HCL 10 MG TAB PO PRN (14:00)
[2018-01-28] MEDS: CARBIDOPA W LEVODOPA 25/100mg TABLET PO SCH ×3 (14:00→22:08)
[2018-01-28] MEDS: GABAPENTIN 300 MG CAP PO SCH ×2 (14:14→22:08)
[2018-01-28] MEDS: LORazepam 0.5 MG TAB PO PRN (14:15)
[2018-01-28] MEDS: MORPHINE SULFATE 4 MG/ML SYR/VIAL IV PRN (14:38)
[2018-01-28] MEDS ORDERED: SUCRALFATE 1 GM/10 ML ORAL SUSP PO SCH (17:00)
[2018-01-28 17:06] VITALS: BP 141/86
[2018-01-28] MEDS: SUCRALFATE 1 GM/10 ML ORAL SUSP PO SCH ×2 (17:17→22:07)
[2018-01-28] MEDS: ACCU-CHEK COMFORT CURVE STRIP VI SCH ×2 (17:34→22:09)
[2018-01-28] MEDS: InsuLIN REG 1unit/0.01ml Soln (100units/ml) SC SCH ×2 (17:34→22:00)
[2018-01-28 21:49] VITALS: BP 122/89
[2018-01-28] MEDS: DONEPEZIL HYDROCHLORIDE 5 MG TAB PO SCH (22:06)
[2018-01-28] MEDS: FLUTICASONE PROP NASAL SPR 0.05 % (50MCG) 16GM EACHNOSTRI SCH (22:06)
[2018-01-28] MEDS: SERTRALINE HCL 50 MG TAB PO SCH (22:08)
[2018-01-28] MEDS: CARVEDILOL 3.125 MG TAB PO SCH (22:08)
[2018-01-29] MEDS: CARBIDOPA W LEVODOPA 25/100mg TABLET PO SCH ×3 (03:44→22:00)
[2018-01-29 05:03] VITALS: BP 97/45
[2018-01-29] MEDS: InsuLIN REG 1unit/0.01ml Soln (100units/ml) SC SCH ×4 (05:48→22:26)
[2018-01-29 05:51] LABS: Potassium 3.2 mmol/L (3.5-5.1)
[2018-01-29] MEDS: GABAPENTIN 300 MG CAP PO SCH ×3 (05:51→22:25)
[2018-01-29] MEDS: SUCRALFATE 1 GM/10 ML ORAL SUSP PO SCH ×4 (05:51→22:25)
[2018-01-29] MEDS: ACCU-CHEK COMFORT CURVE STRIP VI SCH ×4 (05:52→22:26)
[2018-01-29 06:03] LABS: BUN/Creatinine Ratio 9.6; Calcium 8.2 mg/dL (8.5-10.1)
[2018-01-29 08:00] VITALS: BP 136/66
[2018-01-29 08:33] VITALS: BP 136/66
[2018-01-29] MEDS ORDERED: ASPirin 81 mg TAB PO SCH (10:00)
[2018-01-29] MEDS ORDERED: FUROSEMIDE 20 MG/2 ML VIAL IV SCH (10:00)
[2018-01-29] MEDS: CARVEDILOL 3.125 MG TAB PO SCH ×2 (10:02→22:00)
[2018-01-29] MEDS: CLOPIDOGREL BISULFATE 75 MG TAB PO SCH (10:02)
[2018-01-29] MEDS: PARoxetine 20 MG TAB PO SCH (10:02)
[2018-01-29] MEDS: LISINOPRIL 5 MG TAB PO SCH (10:03)
[2018-01-29] MEDS: MORPHINE SULFATE 4 MG/ML SYR/VIAL IV PRN ×2 (10:03→22:27)
[2018-01-29] MEDS: ASPirin-EC 81 mg tab PO SCH (10:03)
[2018-01-29] MEDS: FLUTICASONE PROP NASAL SPR 0.05 % (50MCG) 16GM EACHNOSTRI SCH ×2 (10:05→22:25)
[2018-01-29 12:39] VITALS: BP 153/84
[2018-01-29 21:56] VITALS: BP 103/79
[2018-01-29] MEDS: DONEPEZIL HYDROCHLORIDE 5 MG TAB PO SCH (22:25)
[2018-01-29] MEDS: SERTRALINE HCL 50 MG TAB PO SCH (22:26)
[2018-01-30] MEDS ORDERED: SODIUM CHLORIDE 0.9% 500 ML IV ONE ×2 (01:45→09:30)
[2018-01-30] MEDS: SOD CHL 0.45% 1,000 ML IV SCH ×2 (03:45→17:52)
[2018-01-30 04:56] VITALS: BP 128/63
[2018-01-30] MEDS: CARBIDOPA W LEVODOPA 25/100mg TABLET PO SCH ×3 (05:22→22:00)
[2018-01-30 05:59] LABS: BUN/Creatinine Ratio 13.2; Calcium 7.4 mg/dL (8.5-10.1)
[2018-01-30 06:08] LABS: Potassium 2.6 mmol/L (3.5-5.1)
[2018-01-30] MEDS: SUCRALFATE 1 GM/10 ML ORAL SUSP PO SCH ×4 (06:56→19:36)
[2018-01-30] MEDS: GABAPENTIN 300 MG CAP PO SCH ×3 (06:56→22:40)
[2018-01-30] MEDS: InsuLIN REG 1unit/0.01ml Soln (100units/ml) SC SCH ×4 (06:57→22:41)
[2018-01-30] MEDS: MORPHINE SULFATE 4 MG/ML SYR/VIAL IV PRN ×2 (06:57→19:36)
[2018-01-30] MEDS: ACCU-CHEK COMFORT CURVE STRIP VI SCH ×4 (06:57→22:41)
[2018-01-30 08:00] VITALS: BP 106/64
[2018-01-30 09:00] VITALS: BP 106/64
[2018-01-30] MEDS ORDERED: POTASSIUM CHL 20 Meq TABLET PO ONE (09:15)
[2018-01-30] MEDS: LISINOPRIL 5 MG TAB PO SCH (10:00)
[2018-01-30] MEDS: PARoxetine 20 MG TAB PO SCH (10:20)
[2018-01-30] MEDS: CLOPIDOGREL BISULFATE 75 MG TAB PO SCH (10:21)
[2018-01-30] MEDS: CARVEDILOL 3.125 MG TAB PO SCH ×2 (10:21→22:40)
[2018-01-30] MEDS: ASPirin-EC 81 mg tab PO SCH (10:21)
[2018-01-30] MEDS: FLUTICASONE PROP NASAL SPR 0.05 % (50MCG) 16GM EACHNOSTRI SCH ×2 (10:26→22:39)
[2018-01-30 12:00] VITALS: BP 126/57
[2018-01-30] MEDS: POTASSIUM CHL 20 Meq TABLET PO SCH ×2 (12:58→14:07)
[2018-01-30 17:00] VITALS: BP 120/57
[2018-01-30 22:00] VITALS: BP 122/81
[2018-01-30] MEDS: DONEPEZIL HYDROCHLORIDE 5 MG TAB PO SCH (22:40)
[2018-01-30] MEDS: SERTRALINE HCL 50 MG TAB PO SCH (22:41)
[2018-01-31] MEDS: MORPHINE SULFATE 4 MG/ML SYR/VIAL IV PRN ×3 (01:23→21:58)
[2018-01-31 05:09] VITALS: BP 131/84
[2018-01-31 05:42] LABS: Calcium 7.6 mg/dL (8.5-10.1); Potassium 3.5 mmol/L (3.5-5.1)
[2018-01-31] MEDS: CARBIDOPA W LEVODOPA 25/100mg TABLET PO SCH ×3 (05:54→21:50)
[2018-01-31] MEDS: GABAPENTIN 300 MG CAP PO SCH ×3 (05:54→21:57)
[2018-01-31] MEDS: SUCRALFATE 1 GM/10 ML ORAL SUSP PO SCH ×4 (05:54→21:56)
[2018-01-31] MEDS: ACCU-CHEK COMFORT CURVE STRIP VI SCH ×4 (05:55→21:58)
[2018-01-31] MEDS: InsuLIN REG 1unit/0.01ml Soln (100units/ml) SC SCH ×4 (05:55→21:57)
[2018-01-31] MEDS: SOD CHL 0.45% 1,000 ML IV SCH ×2 (08:21→21:58)
[2018-01-31 08:42] VITALS: BP 147/60
[2018-01-31] MEDS: FLUTICASONE PROP NASAL SPR 0.05 % (50MCG) 16GM EACHNOSTRI SCH ×2 (10:00→21:56)
[2018-01-31] MEDS: LISINOPRIL 5 MG TAB PO SCH (10:03)
[2018-01-31] MEDS: PARoxetine 20 MG TAB PO SCH (10:03)
[2018-01-31] MEDS: CLOPIDOGREL BISULFATE 75 MG TAB PO SCH (10:04)
[2018-01-31] MEDS: ASPirin-EC 81 mg tab PO SCH (10:04)
[2018-01-31] MEDS: CARVEDILOL 3.125 MG TAB PO SCH ×2 (10:05→21:57)
[2018-01-31 12:14] VITALS: BP 138/62
[2018-01-31] MEDS ORDERED: FUROSEMIDE 20 MG/2 ML VIAL IV ONE (15:45)
[2018-01-31 17:18] VITALS: BP 147/54
[2018-01-31] MEDS: DONEPEZIL HYDROCHLORIDE 5 MG TAB PO SCH (21:56)
[2018-01-31] MEDS: SERTRALINE HCL 50 MG TAB PO SCH (21:57)
[2018-01-31 22:00] VITALS: BP 159/76
[2018-02-01] MEDS: cloNIDine HCL 0.1 MG TAB PO PRN
[2018-02-01 02:00] VITALS: BP 142/70
[2018-02-01 04:44] VITALS: BP 110/71
[2018-02-01] MEDS: CARBIDOPA W LEVODOPA 25/100mg TABLET PO SCH ×3 (05:49→20:18)
[2018-02-01] MEDS: ACCU-CHEK COMFORT CURVE STRIP VI SCH ×4 (06:07→21:27)
[2018-02-01] MEDS: InsuLIN REG 1unit/0.01ml Soln (100units/ml) SC SCH ×4 (06:07→21:28)
[2018-02-01] MEDS: GABAPENTIN 300 MG CAP PO SCH ×3 (06:07→21:17)
[2018-02-01] MEDS: SUCRALFATE 1 GM/10 ML ORAL SUSP PO SCH ×4 (06:07→21:17)
[2018-02-01] MEDS: MORPHINE SULFATE 4 MG/ML SYR/VIAL IV PRN ×3 (06:08→21:23)
[2018-02-01 06:20] LABS: Potassium 3.4 mmol/L (3.5-5.1)
[2018-02-01 06:25] LABS: Calcium 7.6 mg/dL (8.5-10.1)
[2018-02-01 08:39] VITALS: BP 123/54
[2018-02-01] MEDS: ASPirin-EC 81 mg tab PO SCH (10:29)
[2018-02-01] MEDS: CARVEDILOL 3.125 MG TAB PO SCH ×2 (10:29→21:17)
[2018-02-01] MEDS: FLUTICASONE PROP NASAL SPR 0.05 % (50MCG) 16GM EACHNOSTRI SCH ×2 (10:29→22:00)
[2018-02-01] MEDS: CLOPIDOGREL BISULFATE 75 MG TAB PO SCH (10:29)
[2018-02-01] MEDS: PARoxetine 20 MG TAB PO SCH (10:29)
[2018-02-01] MEDS: LISINOPRIL 5 MG TAB PO SCH (10:30)
[2018-02-01 13:00] VITALS: BP 135/60
[2018-02-01] MEDS: SOD CHL 0.45% 1,000 ML IV SCH (14:16)
[2018-02-01 16:50] VITALS: BP 135/63
[2018-02-01] MEDS: HYDROcodone-ACET 5/325MG TAB PO PRN (21:15)
[2018-02-01] MEDS: SERTRALINE HCL 50 MG TAB PO SCH (21:16)
[2018-02-01] MEDS: DONEPEZIL HYDROCHLORIDE 5 MG TAB PO SCH (21:16)
[2018-02-01] MEDS: LORazepam 0.5 MG TAB PO PRN (21:17)
[2018-02-01 21:56] VITALS: BP 164/51
[2018-02-02] MEDS: SOD CHL 0.45% 1,000 ML IV SCH (01:49)
[2018-02-02 04:50] VITALS: BP 148/76
[2018-02-02] MEDS: ACCU-CHEK COMFORT CURVE STRIP VI SCH ×4 (05:22→22:18)
[2018-02-02] MEDS: CARBIDOPA W LEVODOPA 25/100mg TABLET PO SCH ×3 (05:22→22:18)
[2018-02-02] MEDS: GABAPENTIN 300 MG CAP PO SCH ×3 (05:22→22:18)
[2018-02-02] MEDS: SUCRALFATE 1 GM/10 ML ORAL SUSP PO SCH ×4 (05:22→22:18)
[2018-02-02] MEDS: InsuLIN REG 1unit/0.01ml Soln (100units/ml) SC SCH ×4 (05:22→22:00)
[2018-02-02 07:00] LABS: Calcium 7.9 mg/dL (8.5-10.1); Potassium 3.6 mmol/L (3.5-5.1)
[2018-02-02 07:05] LABS: BUN/Creatinine Ratio 14.3
[2018-02-02 08:00] VITALS: BP 160/74
[2018-02-02] MEDS: MORPHINE SULFATE 4 MG/ML SYR/VIAL IV PRN (08:41)
[2018-02-02 08:57] VITALS: BP 160/74
[2018-02-02] MEDS: FLUTICASONE PROP NASAL SPR 0.05 % (50MCG) 16GM EACHNOSTRI SCH ×2 (10:00→22:18)
[2018-02-02] MEDS: CARVEDILOL 3.125 MG TAB PO SCH ×2 (12:29→22:18)
[2018-02-02] MEDS: ASPirin-EC 81 mg tab PO SCH (12:30)
[2018-02-02] MEDS: PARoxetine 20 MG TAB PO SCH (12:30)
[2018-02-02] MEDS: LISINOPRIL 5 MG TAB PO SCH (12:31)
[2018-02-02] MEDS: CLOPIDOGREL BISULFATE 75 MG TAB PO SCH (12:31)
[2018-02-02 13:00] VITALS: BP 186/95
[2018-02-02 17:06] VITALS: BP 194/72
[2018-02-02 22:00] VITALS: BP 161/75
[2018-02-02] MEDS: DONEPEZIL HYDROCHLORIDE 5 MG TAB PO SCH (22:18)
[2018-02-02] MEDS: SERTRALINE HCL 50 MG TAB PO SCH (22:18)
[2018-02-02] MEDS: LORazepam 0.5 MG TAB PO PRN (22:19)
[2018-02-03 05:00] VITALS: BP 171/80
[2018-02-03] MEDS: GABAPENTIN 300 MG CAP PO SCH (05:02)
[2018-02-03] MEDS: SUCRALFATE 1 GM/10 ML ORAL SUSP PO SCH (05:02)
[2018-02-03] MEDS: InsuLIN REG 1unit/0.01ml Soln (100units/ml) SC SCH (05:02)
[2018-02-03] MEDS: CARBIDOPA W LEVODOPA 25/100mg TABLET PO SCH (05:02)
[2018-02-03] MEDS: ACCU-CHEK COMFORT CURVE STRIP VI SCH (05:03)
[2018-02-03] MEDS: cloNIDine HCL 0.1 MG TAB PO PRN (06:29)
[2018-02-03 08:00] VITALS: BP 168/77
[2018-02-03] MEDS: HYDROcodone-ACET 5/325MG TAB PO PRN (08:23)
[2018-02-03 09:00] VITALS: BP 168/77
[2018-02-03] MEDS: CLOPIDOGREL BISULFATE 75 MG TAB PO SCH (09:58)
[2018-02-03] MEDS: LISINOPRIL 5 MG TAB PO SCH (09:59)
[2018-02-03] MEDS: PARoxetine 20 MG TAB PO SCH (09:59)
[2018-02-03] MEDS: CARVEDILOL 3.125 MG TAB PO SCH (10:00)
[2018-02-03] MEDS: ASPirin-EC 81 mg tab PO SCH (10:00)
[2018-02-03] MEDS: FLUTICASONE PROP NASAL SPR 0.05 % (50MCG) 16GM EACHNOSTRI SCH (10:15)
[2018-02-03] MEDS: MORPHINE SULFATE 4 MG/ML SYR/VIAL IV PRN (10:52)
[2018-02-03 11:28] VITALS: BP 157/68
== END 2018-02-03 12:30 | disposition home or self-care (01) | DRG 280 ==
LOC: ER 06:05 → EDBD 06:05 → CATH 09:44 → EAST 09:45 → TELE-EAST 13:03
PROVIDERS: ADMIT Specialist; ATTEND Specialist
PROC: 4A023N8 Measurement of Cardiac Sampling and Pressure, Bilateral, Percutaneous Approach (ICD-10-PCS; principal; 2018-01-28)
PROC: B2111ZZ Fluoroscopy of Multiple Coronary Arteries using Low Osmolar Contrast (ICD-10-PCS; 2018-01-28)
PROC: B2151ZZ Fluoroscopy of Left Heart using Low Osmolar Contrast (ICD-10-PCS; 2018-01-28)
PROC: B41F1ZZ Fluoroscopy of Right Lower Extremity Arteries using Low Osmolar Contrast (ICD-10-PCS; 2018-01-28)
DX: I21.4 Non-ST elevation (NSTEMI) myocardial infarction (principal); J96.21 Acute and chronic respiratory failure with hypoxia; I50.33 Acute on chronic diastolic (congestive) heart failure; I13.0 Hypertensive heart and chronic kidney disease with heart failure and stage 1 through stage 4 chronic kidney disease, or unspecified chronic kidney disease; I42.9 Cardiomyopathy, unspecified; N17.9 Acute kidney failure, unspecified; J44.0 Chronic obstructive pulmonary disease with (acute) lower respiratory infection; I27.20 Pulmonary hypertension, unspecified; E78.5 Hyperlipidemia, unspecified; E11.22 Type 2 diabetes mellitus with diabetic chronic kidney disease; F17.210 Nicotine dependence, cigarettes, uncomplicated; F41.1 Generalized anxiety disorder; I25.10 Atherosclerotic heart disease of native coronary artery without angina pectoris; N18.9 Chronic kidney disease, unspecified; Z82.49 Family history of ischemic heart disease and other diseases of the circulatory system; Z86.73 Personal history of transient ischemic attack (TIA), and cerebral infarction without residual deficits; Z83.3 Family history of diabetes mellitus; Z95.1 Presence of aortocoronary bypass graft; Z95.5 Presence of coronary angioplasty implant and graft
CPT/HCPCS: 51702; 93460; 96361; 96374; 96375; 99285; G0278; 36415; 36600; 71045; 78264; 80048; 80053; 80307; 81001; 82805; 82962; 83036; 83735; 83880; 84132; 84443; 84484; 85025; 85379; 85610; 85730; 87081; 93005; 99152; A6257; C1751; G0378; J1815; J2001; J2250; Q9967

== ENCOUNTER → 2018-03-05 | Outpatient (CLI) | payer MEDICARE, OTHER ==
[2018-03-05 11:08] LABS: Basophils # (auto) 0 uL; Basophils % (auto) 0.7 % (0.0-2.0); Eosinophils # (auto) 0.4 uL; Eosinophils % (auto) 5.7 % (0.0-7.0); Hematocrit 30.9 % (36.0-46.0); Lymphocytes # (auto) 1.7 uL; Lymphocytes % (auto) 25.7 % (10.0-50.0); Mean Corpuscular Hemoglobin 30.7 pg (28.0-32.0); Mean Corpuscular Hgb Conc. 32.4 g/dL (32.0-36.0); Mean Corpuscular Volume 94.9 fL (80.0-100.0); Monocytes # (auto) 0.4 uL; Monocytes % (auto) 6.6 % (0.0-12.0); Neutrophils % (auto) 61.3 % (37.0-80.0); Nucleated Red Blood Cells % 0.1 %; Platelet Count (auto) 218 10^3/uL (140-450); Red Blood Cells 3.25 10^6/uL (4.0-5.20); Red Cell Distribution Width 16.4 % (11.8-14.3); White Blood Cell 6.5 10^3/uL (4.4-10.8)
[2018-03-05 13:15] LABS: Potassium 3.8 mmol/L (3.5-5.1)
[2018-03-05 13:20] LABS: Hepatitis B Surface Antibody Negative
[2018-03-05 13:27] LABS: Albumin 2.9 g/dL (3.4-5.0); BUN/Creatinine Ratio 14.7; Bilirubin, Total 0.5 mg/dL (0.2-1.0); Calcium 8.3 mg/dL (8.5-10.1); Total Protein 7.5 g/dL (6.4-8.2)
[2018-03-05 14:27] LABS: Hepatitis A Total Antibody Positive
[2018-03-05 14:28] LABS: Hepatitis B Surface Antigen Negative (Negative)
[2018-03-05 14:31] LABS: Hepatitis B Core Total AB Negative
[2018-03-05 14:37] LABS: Hepatitis C Antibody Positive (Negative)
== END | disposition home or self-care (01) ==
LOC: LAB 10:45
PROVIDERS: ATTEND Nurse Practitioner
DX: E78.5 Hyperlipidemia, unspecified (principal)
CPT/HCPCS: 36415; 80053; 85025; 86704; 86706; 86708; 86803; 87340

== ENCOUNTER 2018-04-25 18:37 | Emergency (ER) | payer MEDICARE, OTHER ==
[~2018-04-25] VITALS: Ht 165.1 cm; Wt 106.6 kg
[2018-04-25 18:58] VITALS: BP 221/103
[2018-04-25] MEDS ORDERED: cloNIDine HCL 0.1 MG TAB ONE (19:05)
[2018-04-25] MEDS ORDERED: cloNIDine HCL 0.1 MG TAB PO ONE (19:15)
[2018-04-25 20:26] LABS: Basophils # (auto) 0.1 uL; Basophils % (auto) 0.9 % (0.0-2.0); Eosinophils # (auto) 0.2 uL; Eosinophils % (auto) 1.9 % (0.0-7.0); Hematocrit 35.1 % (36.0-46.0); Hemoglobin 11.7 g/dL (12.2-16.2); Lymphocytes # (auto) 2.9 uL; Lymphocytes % (auto) 33.8 % (10.0-50.0); Mean Corpuscular Hemoglobin 30.3 pg (28.0-32.0); Mean Corpuscular Hgb Conc. 33.2 g/dL (32.0-36.0); Mean Corpuscular Volume 91.2 fL (80.0-100.0); Monocytes # (auto) 0.8 uL; Monocytes % (auto) 8.9 % (0.0-12.0); Neutrophils # (auto) 4.7 uL; Neutrophils % (auto) 54.5 % (37.0-80.0); Platelet Count (auto) 287 10^3/uL (140-450); Red Blood Cells 3.85 10^6/uL (4.0-5.20); Red Cell Distribution Width 14.9 % (11.8-14.3); White Blood Cell 8.7 10^3/uL (4.4-10.8)
[2018-04-25 20:40] LABS: Alanine Aminotransferase 20 U/L (13-56); Albumin 3.2 g/dL (3.4-5.0); Anion Gap 6 (5-15); Aspartate Aminotransferase 23 U/L (15-37); Blood Urea Nitrogen 16 mg/dL (7-18); Calcium 8.8 mg/dL (8.5-10.1); Carbon Dioxide 26 mmol/L (21-32); Chloride 102 mmol/L (98-107); Glucose 197 mg/dL (74-106); Potassium 3.8 mmol/L (3.5-5.1); Sodium 134 mmol/L (136-145)
[2018-04-25 20:45] LABS: Alkaline Phosphatase 189 U/L (45-117); BUN/Creatinine Ratio 18.2; Bilirubin, Total 0.4 mg/dL (0.2-1.0); GFR African American > 60 mL/min; GFR Non-African American > 60 mL/min; Total Protein 8.3 g/dL (6.4-8.2)
== END 2018-04-25 21:43 | disposition left against medical advice (07) ==
LOC: ER 18:49
DX: R51 Headache (principal); R07.9 Chest pain, unspecified; Z53.21 Procedure and treatment not carried out due to patient leaving prior to being seen by health care provider
CPT/HCPCS: 36415; 70450; 71045; 80053; 82962; 83735; 84484; 85025; 93005

== ENCOUNTER 2019-01-06 10:31 | Inpatient (IN) | payer MEDICARE, OTHER ==
[~2019-01-06] VITALS: Ht 162.6 cm; Wt 111.1 kg
[~2019-01-06 10:31] MED LIST changes: -LORA-654 PO; +LORA0.5T12 PO
[2019-01-06 11:35] LABS: Basophils # (auto) 0.1 uL; Basophils % (auto) 0.8 % (0.0-2.0); Eosinophils # (auto) 0.3 uL; Eosinophils % (auto) 2.3 % (0.0-7.0); Hematocrit 33.8 % (36.0-46.0); Lymphocytes # (auto) 2.2 uL; Lymphocytes % (auto) 19.1 % (10.0-50.0); Mean Corpuscular Hemoglobin 28.9 pg (28.0-32.0); Mean Corpuscular Hgb Conc. 32.5 g/dL (32.0-36.0); Mean Corpuscular Volume 88.7 fL (80.0-100.0); Monocytes # (auto) 0.9 uL; Monocytes % (auto) 7.9 % (0.0-12.0); Neutrophils # (auto) 8.1 uL; Neutrophils % (auto) 69.9 % (37.0-80.0); Nucleated Red Blood Cells % 0.1 %; Platelet Count (auto) 254 10^3/uL (140-450); Red Blood Cells 3.82 10^6/uL (4.0-5.20); Red Cell Distribution Width 14.9 % (11.8-14.3); White Blood Cell 11.5 10^3/uL (4.4-10.8)
[2019-01-06 12:02] LABS: Albumin 2.7 g/dL (3.4-5.0); Anion Gap 5 (5-15); Blood Urea Nitrogen 14 mg/dL (7-18); Calcium 8.4 mg/dL (8.5-10.1); Carbon Dioxide 27 mmol/L (21-32); Chloride 105 mmol/L (98-107); Glucose 306 mg/dL (74-106); Potassium 3.4 mmol/L (3.5-5.1); Sodium 137 mmol/L (136-145)
[2019-01-06 12:08] LABS: Alanine Aminotransferase 21 U/L (13-56); Alkaline Phosphatase 229 U/L (45-117); Aspartate Aminotransferase 22 U/L (15-37); BUN/Creatinine Ratio 13.1; Bilirubin, Total 0.4 mg/dL (0.2-1.0); GFR African American 66 mL/min; GFR Non-African American 54 mL/min; Total Protein 7.8 g/dL (6.4-8.2)
[2019-01-06] MEDS ORDERED: cloNIDine HCL 0.1 MG TAB PO ONE (16:45)
[2019-01-06] MEDS ORDERED: HYDROcodone-ACET 10/325MG TAB PO ONE (18:30)
[2019-01-06] MEDS ORDERED: hydrALAZINE HCL 20 MG/ML VL IV ONE ×2 (19:15→20:15)
[2019-01-06] MEDS ORDERED: MORPHINE SULFATE 4 MG/ML SYR/VIAL IV ONE (20:45)
[2019-01-06] MEDS ORDERED: ONDANSETRON HCL 4 MG/2 ML VIAL IV ONE (20:45)
[2019-01-06] MEDS ORDERED: POTASSIUM CHL 20 Meq TABLET PO ONE (21:15)
[2019-01-06] MEDS ORDERED: MORPHINE SULF INJ 2 MG/ML SYRINGE 1ML IV PRN ×2 (21:15)
[2019-01-06] MEDS ORDERED: NITROGLYCERIN 0.4 MG SL TAB SL PRN (21:15)
[2019-01-06] MEDS ORDERED: DEXTROSE (50%) 50ML SYRG IV PRN ×2 (21:15→23:30)
[2019-01-06] MEDS ORDERED: LORazepam 0.5 MG TAB PO PRN ×2 (21:15→23:30)
[2019-01-06] MEDS ORDERED: LABETALOL HCL 5 MG/ML ML 20ML VIAL IV PRN (21:15)
[2019-01-06] MEDS ORDERED: ALBUTEROL SULF 2.5 MG/0.5ML(0.5%) NEB SOLN NEB PRN (21:15)
[2019-01-06] MEDS ORDERED: ONDANSETRON HCL 4 MG/2 ML VIAL IV PRN (21:15)
[2019-01-06 21:38] LABS: Urine Bacteria NONE SEEN /hpf (None Seen); Urine Blood TRACE /uL (Negative); Urine Specific Gravity 1.015 (1.001-1.035); Urine WBC 16 /hpf (0 - 5)
[2019-01-06] MEDS: CARVEDILOL 3.125 MG TAB PO SCH (21:51)
[2019-01-06] MEDS ORDERED: CYCLOBENZAPRINE HCL 10 MG TAB PO SCH (22:00)
[2019-01-06] MEDS ORDERED: GABAPENTIN 300 MG CAP PO SCH (22:00)
[2019-01-06] MEDS ORDERED: InsuLIN REG 1unit/0.01ml Soln (100units/ml) SC SCH (22:00)
[2019-01-06] MEDS ORDERED: hydrALAZINE HCL 25 MG TAB PO SCH (22:00)
[2019-01-06] MEDS ORDERED: cloNIDine HCL 0.1 MG TAB PO SCH (22:00)
[2019-01-06] MEDS ORDERED: ACCU-CHEK COMFORT CURVE STRIP VI SCH (22:00)
[2019-01-06 22:15] VITALS: BP 141/87
[2019-01-06 22:33] VITALS: BP 141/87
[2019-01-06] MEDS ORDERED: PNEUMOCOCCAL VACC POLYS 25 MCG/0.5 ML VIAL SUBCUT ONE (23:00)
[2019-01-06] MEDS ORDERED: INFLUENZA QUAD 2019-2020 0.5ml SYRG IM ONE (23:00)
[2019-01-06] MEDS ORDERED: ALLO100T PO (23:02)
[2019-01-06] MEDS ORDERED: WARF2.5T39 PO (23:02)
[2019-01-06] MEDS ORDERED: AMLO5TAB15 PO (23:02)
[2019-01-06] MEDS ORDERED: POTA10TA51 PO (23:02)
[2019-01-06] MEDS ORDERED: INSU1INJ19 SC (23:02)
[2019-01-06] MEDS: InsuLIN REG 1unit/0.01ml Soln (100units/ml) SC SCH (23:43)
--- NOTE | 2019-01-07 00:05 | NUR ---
Telemetry admit from ER ANIYAH GUADARRAMA admitted to Telemetry unit after SBAR received. Patient oriented to LEIA HASTINGS RN primary RN, unit, room, bed, and unit policies regarding patient care and visiting hours. Patient now on continuous telemetry monitoring, tele box # 2 and telemetry reading on arrival to unit is NSR. Patient is on room air, weighed by bedscale and encouraged to call if they need something. All questions and concerns addressed, patient verbalized understanding. Note:
--- NOTE | 2019-01-07 00:06 | NUR ---
[facility] SWAB SENT.
--- NOTE | 2019-01-07 00:17 | NUR ---
PATIENT WAS MISTAKENLY DISCHARGED FROM ED BEFORE TRANSFERRING TO THE FLOOR, MEDICATION ORDERS ARE NOT CROSSING OVER PYXIS, REENTERED MEDICATION ORDERS AND DISCONTINUED PREVIOUS ORDERS AND INFORMED PHARMACY AND ACCOUNT DEVELOPMENT ASSOCIATE.
[2019-01-07 00:54] VITALS: BP 141/87
[2019-01-07 05:16] VITALS: BP 156/70
[2019-01-07] MEDS: cloNIDine HCL 0.1 MG TAB PO SCH ×3 (05:30→22:00)
[2019-01-07] MEDS: CYCLOBENZAPRINE HCL 10 MG TAB PO SCH ×3 (05:30→21:29)
[2019-01-07] MEDS: GABAPENTIN 100 MG CAP PO SCH ×3 (05:30→21:29)
[2019-01-07] MEDS: hydrALAZINE HCL 25 MG TAB PO SCH ×3 (05:31→21:28)
[2019-01-07] MEDS: ACCU-CHEK COMFORT CURVE STRIP VI SCH ×4 (06:25→21:29)
[2019-01-07] MEDS: InsuLIN REG 1unit/0.01ml Soln (100units/ml) SC SCH ×4 (06:28→21:29)
[2019-01-07] MEDS ORDERED: InsuLIN REG 1unit/0.01ml Soln (100units/ml) SC SCH (07:00)
--- NOTE | 2019-01-07 07:26 | NUR ---
Opening Shift Note Assumed care of patient, awake and alert. No S/S of distress/SOB. Pt denies having any pain at this time. Bed in lowest and locked position with side rails up x2 and call light in reach. Instructed on POC and to call for assist PRN, will continue to monitor for changes Q1hr and PRN.
[2019-01-07 08:31] VITALS: BP 124/56
--- NOTE | 2019-01-07 09:07 | NUR ---
PT ASSESSED FOR PRN HHN TX. PT IS ON ROOM AIR, SPO2 94%, HR 87, RR 18. NO S/S OF RESPIRATORY DISTRESS. PT AWARE TO HAVE RT PAGED IF TX INDICATED.
[2019-01-07] MEDS ORDERED: PNEUMOCOCCAL VACC POLYS 25 MCG/0.5 ML VIAL IM ONE (09:45)
[2019-01-07] MEDS: PARoxetine 20 MG TAB PO SCH (10:00)
[2019-01-07] MEDS: ASPirin 81 mg TAB PO SCH (11:08)
[2019-01-07] MEDS: HYDROcodone-ACET 5/325MG TAB PO PRN (11:08)
[2019-01-07] MEDS: CLOPIDOGREL BISULFATE 75 MG TAB PO SCH (11:09)
[2019-01-07] MEDS: FUROSEMIDE 20 MG TAB PO SCH (11:09)
[2019-01-07] MEDS: CARVEDILOL 3.125 MG TAB PO SCH ×2 (11:09→21:29)
[2019-01-07] MEDS: FAMOTIDINE 20 MG TAB PO SCH (11:10)
--- NOTE | 2019-01-07 11:19 | NUR ---
DR. VALENZUELA AT PT BEDSIDE DISCUSSING POC WITH PT.
[2019-01-07 14:05] VITALS: BP 131/46
[2019-01-07 16:00] VITALS: BP 135/66
[2019-01-07 21:43] VITALS: BP 127/66
--- NOTE | 2019-01-07 22:27 | NUR ---
Respiratory note: PT SEEN AND ASSESSED FOR PRN MED NEB TX AT 2227. TX NOT INDICATED AT THIS TIME. PT IS DISPLAYING NO SIGNS OF DISTRESS, SHE STATES THAT SHE IS BREATHING FINE. HR 65 RR 18 POX 96% ON ROOM AIR. PT AWARE TO CALL FOR RT IF ANY DISTRESS OCCURS.
[2019-01-08 05:36] VITALS: BP_SYST 150; BP_SYST 159; BP_DIAS 70; BP_DIAS 72
[2019-01-08] MEDS: cloNIDine HCL 0.1 MG TAB PO SCH (05:38)
[2019-01-08] MEDS: GABAPENTIN 100 MG CAP PO SCH (05:38)
[2019-01-08] MEDS: CYCLOBENZAPRINE HCL 10 MG TAB PO SCH (05:38)
[2019-01-08] MEDS: hydrALAZINE HCL 25 MG TAB PO SCH (05:38)
[2019-01-08 06:19] LABS: Basophils # (auto) 0 uL; Basophils % (auto) 0.4 % (0.0-2.0); Eosinophils # (auto) 0.3 uL; Eosinophils % (auto) 4.5 % (0.0-7.0); Hematocrit 30.6 % (36.0-46.0); Hemoglobin 10.2 g/dL (12.2-16.2); Lymphocytes # (auto) 1.9 uL; Lymphocytes % (auto) 28.5 % (10.0-50.0); Mean Corpuscular Hemoglobin 29.3 pg (28.0-32.0); Mean Corpuscular Hgb Conc. 33.2 g/dL (32.0-36.0); Mean Corpuscular Volume 88.2 fL (80.0-100.0); Monocytes # (auto) 0.7 uL; Monocytes % (auto) 10.4 % (0.0-12.0); Neutrophils # (auto) 3.8 uL; Neutrophils % (auto) 56.2 % (37.0-80.0); Nucleated Red Blood Cells % 0.1 %; Platelet Count (auto) 253 10^3/uL (140-450); Red Blood Cells 3.47 10^6/uL (4.0-5.20); Red Cell Distribution Width 14.7 % (11.8-14.3); White Blood Cell 6.8 10^3/uL (4.4-10.8)
[2019-01-08] MEDS: ACCU-CHEK COMFORT CURVE STRIP VI SCH (06:25)
[2019-01-08] MEDS: InsuLIN REG 1unit/0.01ml Soln (100units/ml) SC SCH (06:29)
[2019-01-08 06:38] LABS: Potassium 3.8 mmol/L (3.5-5.1)
[2019-01-08 06:41] LABS: BUN/Creatinine Ratio 18.5
[2019-01-08] MEDS: HYDROcodone-ACET 5/325MG TAB PO PRN (06:57)
--- NOTE | 2019-01-08 07:15 | NUR ---
Opening Shift Note Assumed care of patient, awake and alert. No S/S of distress/SOB or pain. Insructed on POC and to call for assist PRN, will continue to monitor for changes Q1hr and PRN.
[2019-01-08 09:00] VITALS: BP 130/69
[2019-01-08] MEDS: CLOPIDOGREL BISULFATE 75 MG TAB PO SCH (09:43)
[2019-01-08] MEDS: FAMOTIDINE 20 MG TAB PO SCH (09:43)
[2019-01-08] MEDS: CARVEDILOL 3.125 MG TAB PO SCH (09:44)
[2019-01-08] MEDS: PARoxetine 20 MG TAB PO SCH (09:44)
[2019-01-08] MEDS: ASPirin 81 mg TAB PO SCH (09:45)
[2019-01-08] MEDS: FUROSEMIDE 20 MG TAB PO SCH (09:45)
--- NOTE | 2019-01-08 09:48 | NUR ---
AMA Note ANIYAH GUADARRAMA states they wants to leave the hospital Against Medical Advice (AMA). Patient encouraged to stay for further treatment/stabilization. MD notified of patient's wishes. Patient advised of the risks and benefits of leaving AMA. Patient verbalized understanding. Patient encouraged to return to the ER if symptoms do not improve or worsen.
--- NOTE | 2019-01-08 10:33 | NUR ---
patients ride picked up patient.
[2019-01-09] MEDS ORDERED: INFLUENZA QUAD 2019-2020 0.5ml SYRG IM ONE (07:30)
== END 2019-01-08 10:33 | disposition left against medical advice (07) | DRG 291 ==
LOC: ER 10:31 → TELE-EAST 10:32 → ER 22:06
PROVIDERS: ADMIT Internal Medicine; ATTEND Internal Medicine
DX: I13.0 Hypertensive heart and chronic kidney disease with heart failure and stage 1 through stage 4 chronic kidney disease, or unspecified chronic kidney disease (principal); I50.43 Acute on chronic combined systolic (congestive) and diastolic (congestive) heart failure; J44.9 Chronic obstructive pulmonary disease, unspecified; N18.3 Chronic kidney disease, stage 3 (moderate); M48.02 Spinal stenosis, cervical region; M47.812 Spondylosis without myelopathy or radiculopathy, cervical region; I25.10 Atherosclerotic heart disease of native coronary artery without angina pectoris; G89.29 Other chronic pain; F41.9 Anxiety disorder, unspecified; E78.5 Hyperlipidemia, unspecified; F17.210 Nicotine dependence, cigarettes, uncomplicated; E11.22 Type 2 diabetes mellitus with diabetic chronic kidney disease; E66.01 Morbid (severe) obesity due to excess calories; G62.9 Polyneuropathy, unspecified; Z53.21 Procedure and treatment not carried out due to patient leaving prior to being seen by health care provider; E11.42 Type 2 diabetes mellitus with diabetic polyneuropathy; Z86.73 Personal history of transient ischemic attack (TIA), and cerebral infarction without residual deficits; Z91.19 Patient's noncompliance with other medical treatment and regimen; Z95.5 Presence of coronary angioplasty implant and graft; Z82.49 Family history of ischemic heart disease and other diseases of the circulatory system; Z83.3 Family history of diabetes mellitus; Z23 Encounter for immunization
CPT/HCPCS: 36415; 70450; 71045; 72125; 76536; 80048; 80053; 81001; 82962; 84484; 85025; 87081; 93005; 96374; 96375; G0378; J1815; J2405

== ENCOUNTER 2019-03-01 12:19 | Emergency (ER) | payer MEDICARE, OTHER ==
[~2019-03-01] VITALS: Ht 162.6 cm; Wt 106.6 kg
[~2019-03-01 12:19] MED LIST changes: +ALLO100T PO; +AMLO5TAB15 PO; -BIOT10004 PO; -CARB25TA3 OR; -DIPH25TA26 PO; -HYDR-2549 OR; -HYDR-4296 PO; +INSU1INJ19 SC; -LEV500T PO; -LORA0.5T12 PO; -PAR20T PO; +POTA10TA51 PO; -RANI150C11 PO; -TEMA30CA PO; +WARF2.5T39 PO
[2019-03-01 12:30] VITALS: BP 155/65
[2019-03-01] MEDS ORDERED: ACETAMINOPHEN 500 MG TAB PO ONE (15:15)
== END 2019-03-01 16:25 | disposition home or self-care (01) ==
LOC: ER 12:19
DX: S46.912A Strain of unspecified muscle, fascia and tendon at shoulder and upper arm level, left arm, initial encounter (principal); M16.0 Bilateral primary osteoarthritis of hip; I13.0 Hypertensive heart and chronic kidney disease with heart failure and stage 1 through stage 4 chronic kidney disease, or unspecified chronic kidney disease; E11.22 Type 2 diabetes mellitus with diabetic chronic kidney disease; N18.9 Chronic kidney disease, unspecified; I50.9 Heart failure, unspecified; F17.210 Nicotine dependence, cigarettes, uncomplicated; Z86.73 Personal history of transient ischemic attack (TIA), and cerebral infarction without residual deficits; Z98.61 Coronary angioplasty status; Z98.51 Tubal ligation status; Z79.4 Long term (current) use of insulin; Z79.899 Other long term (current) drug therapy
CPT/HCPCS: 73030; 73502; 82962

== ENCOUNTER 2019-03-24 12:03 | Inpatient (IN) | payer MEDICARE, OTHER ==
[~2019-03-24] VITALS: Ht 154.9 cm; Wt 104.7 kg
[2019-03-24] MEDS ORDERED: ALBUTEROL SULF 2.5 MG/0.5ML(0.5%) NEB SOLN NEB ONE (12:45)
[2019-03-24] MEDS ORDERED: methylPREDNISolone SOD SUCC 125 MG/2 ML VL IV ONE (12:45)
[2019-03-24] MEDS ORDERED: IPRATROPIUM BROM 0.5 MG/2.5ML INH SOL NEB ONE (12:45)
[2019-03-24 13:16] LABS: Basophils # (auto) 0 uL; Basophils % (auto) 0.3 % (0.0-2.0); Eosinophils # (auto) 0.1 uL; Eosinophils % (auto) 0.5 % (0.0-7.0); Hematocrit 28.4 % (36.0-46.0); Lymphocytes # (auto) 1.7 uL; Lymphocytes % (auto) 13.5 % (10.0-50.0); Mean Corpuscular Hemoglobin 27.2 pg (28.0-32.0); Mean Corpuscular Hgb Conc. 31.7 g/dL (32.0-36.0); Mean Corpuscular Volume 85.8 fL (80.0-100.0); Monocytes # (auto) 0.9 uL; Monocytes % (auto) 7.2 % (0.0-12.0); Neutrophils # (auto) 9.8 uL; Neutrophils % (auto) 78.5 % (37.0-80.0); Nucleated Red Blood Cells % 0.1 %; Platelet Count (auto) 304 10^3/uL (140-450); Red Blood Cells 3.31 10^6/uL (4.0-5.20); Red Cell Distribution Width 18.4 % (11.8-14.3); White Blood Cell 12.5 10^3/uL (4.4-10.8)
[2019-03-24 13:35] LABS: INR 1.71 (0.9-1.15); Partial Thromboplastin Time 28.2 sec (23.64-32.05)
[2019-03-24 13:38] LABS: Alanine Aminotransferase 14 U/L (13-56); Albumin 2.9 g/dL (3.4-5.0); Anion Gap 7 (5-15); Aspartate Aminotransferase 17 U/L (15-37); Blood Urea Nitrogen 13 mg/dL (7-18); Calcium 8.2 mg/dL (8.5-10.1); Carbon Dioxide 27 mmol/L (21-32); Chloride 105 mmol/L (98-107); GFR African American 77 mL/min; GFR Non-African American 64 mL/min; Glucose 156 mg/dL (74-106); Magnesium 2.3 mg/dL (1.6-2.6); Potassium 3.9 mmol/L (3.5-5.1); Sodium 139 mmol/L (136-145)
[2019-03-24 13:42] LABS: Alkaline Phosphatase 132 U/L (45-117); Bilirubin, Total 0.6 mg/dL (0.2-1.0); Total Protein 7.6 g/dL (6.4-8.2)
[2019-03-24] MEDS ORDERED: HYDROcodone-ACET 10/325MG TAB PO ONE (16:00)
[2019-03-24] MEDS ORDERED: NITROGLYCERIN 0.4 MG SL TAB SL PRN (16:45)
[2019-03-24] MEDS ORDERED: MORPHINE SULF INJ 2 MG/ML SYRINGE 1ML IV PRN (16:45)
--- NOTE | 2019-03-24 18:18 | NUR ---
Telemetry admit from ER: ANIYAH GUADARRAMA admitted to Telemetry unit after SBAR received. Patient oriented to SAÚL EATON, RN primary RN, unit, room, bed, and unit policies regarding patient care and visiting hours. Patient now on continuous telemetry monitoring, tele box # 9 and telemetry reading on arrival to unit is SR. Patient placed on bedside oxygen at 4 LPM, weighed by bedscale and encouraged to call if they need something. All questions and concerns addressed, patient verbalized understanding.
--- NOTE | 2019-03-24 18:36 | NUR ---
[facility]SA swab collected and sent.
--- NOTE | 2019-03-24 18:45 | NUR ---
Skin assessment: Visible skin intact.
[2019-03-24] MEDS: AZITHROMYCIN 500MG/ 250ML 250 ML IV SCH (18:57)
--- NOTE | 2019-03-24 19:22 | NUR ---
Closing note: patient sitting in bed. No S/S of distress or pain at this time. Patient has expiatory wheezing and SOB. Care endorsed to NOC ALIYAH Garcia.
--- NOTE | 2019-03-24 19:50 | NUR ---
open note assumed care of pt. upon entering room pt awake, alert and oriented x4. pt on 4L NC, no distress noted. pt denies any pain at this time. pt on contact iso for mrsa hx. pt updated on plan of care, no additional questions at this time. pt bed locked, low and 2x rails up. call light in reach, this nurse will round q1hr and prn.
[2019-03-24] MEDS: CARVEDILOL 3.125 MG TAB PO SCH (21:54)
[2019-03-24] MEDS: cloNIDine HCL 0.1 MG TAB PO SCH (21:54)
[2019-03-24] MEDS: GABAPENTIN 300 MG CAP PO SCH (21:55)
[2019-03-24] MEDS: ALBUTEROL SULF 2.5 MG/0.5ML(0.5%) NEB SOLN NEB PRN (22:00)
[2019-03-24 22:03] VITALS: BP 149/64
[2019-03-24 22:13] VITALS: BP 149/64
[2019-03-25 05:05] VITALS: BP 146/65
--- NOTE | 2019-03-25 05:49 | NUR ---
Respiratory note: HR 65, 16, SPO2 96% ON 3 L NC BS REVEAL IE WHEEZES. PT DOES NOT WANT PRN MED NEB TX AT THIS TIME. NO SIGNS OR SYMPTOMS OF RESPIRATORY DISTRESS NOTED.
[2019-03-25] MEDS: cloNIDine HCL 0.1 MG TAB PO SCH ×3 (05:53→21:22)
[2019-03-25] MEDS: GABAPENTIN 300 MG CAP PO SCH ×3 (05:53→21:21)
[2019-03-25 06:31] LABS: INR 1.51 (0.9-1.15)
--- NOTE | 2019-03-25 07:43 | NUR ---
Opening Note Assumed pt care from [facility] nurse. Pt is a/ox4 with no s/s of distress or SOB. Pt's lung sounds are wheezy upon exhalation on posterior bilateral bases. Pt states that she still has a productive cough. Discussed availability of breathing treatments. Pt is currently out of bed eating breakfast. Discussed POC with pt; pt verbalized understanding. Safety measures maintained with call light within reach, bed in lowest position and side rails up. Will continue to monitor for changes q1hr and prn.
[2019-03-25 09:00] VITALS: BP 158/49
--- NOTE | 2019-03-25 09:10 | NUR ---
UA SENT TO LAB
[2019-03-25] MEDS: AZITHROMYCIN 500MG/ 250ML 250 ML IV SCH (09:33)
[2019-03-25] MEDS: PANTOPRAZOLE 40 MG TAB PO SCH (09:33)
[2019-03-25] MEDS: FUROSEMIDE 40 MG/4 ML VIAL IV SCH (09:33)
[2019-03-25] MEDS: CLOPIDOGREL BISULFATE 75 MG TAB PO SCH (09:33)
[2019-03-25] MEDS: CARVEDILOL 3.125 MG TAB PO SCH ×2 (09:34→21:22)
[2019-03-25] MEDS: ASPirin 81 mg TAB PO SCH (09:34)
[2019-03-25] MEDS: amLODIPine BESYLATE 5 MG TAB PO SCH (09:34)
[2019-03-25] MEDS: DONEPEZIL HYDROCHLORIDE 5 MG TAB PO SCH (09:35)
[2019-03-25 09:37] LABS: Urine Bacteria NONE SEEN /hpf (None Seen); Urine Blood Negative /uL (Negative); Urine Hyaline Cast FEW /lpf (0 - 2); Urine Specific Gravity 1.016 (1.001-1.035); Urine WBC 1 /hpf (0 - 5)
[2019-03-25] MEDS: ALLOPURINOL 100 MG TAB PO SCH (09:39)
[2019-03-25] MEDS: MORPHINE SULF INJ 2 MG/ML SYRINGE 1ML IV PRN ×3 (09:42→21:23)
--- NOTE | 2019-03-25 10:38 | NUR ---
DR Raza at bedside MD to see pt. Requested an echo be done on pt. Since visit, pt has had an echo. Will notify . Jv new orders at this time. Will continue to monitor.
[2019-03-25 13:23] VITALS: BP 113/50
--- NOTE | 2019-03-25 16:40 | NUR ---
Dr Acosta At Bedside MD to see pt
[2019-03-25 17:00] VITALS: BP 136/60
[2019-03-25] MEDS ORDERED: WARFARIN SODIUM 2 MG TAB PO ONE ×2 (17:00→19:00)
--- NOTE | 2019-03-25 18:00 | NUR ---
Rapid Influenza Sent to Lab
--- NOTE | 2019-03-25 18:03 | NUR ---
Pt Taken Down to CT Via Wheelchair
--- NOTE | 2019-03-25 18:20 | NUR ---
Pt Back From CT
--- NOTE | 2019-03-25 18:30 | NUR ---
Dr Fung at Bedside MD to see pt. NO new orders at this time.
[2019-03-25 20:15] VITALS: BP 159/75
--- NOTE | 2019-03-25 20:15 | NUR ---
Opening Shift Note Assumed care of patient, awake and alert. No S/S of distress/SOB. Respirations even and unlabored. Patient is on 3 liters of oxygen via nasal cannula. Patient states she uses 3 liters of oxygen at home. Instructed on POC and to call for assist PRN, will continue to monitor for changes Q1hr and PRN.
--- NOTE | 2019-03-25 21:15 | NUR ---
PATIENT EDUCATED ON HOW TO USE INCENTIVE SPIROMETER (IS). PATIENT EDUCATED TO USE IS 10 TIMES PER HOUR WHEN AWAKE. PATIENT VERBALIZED UNDERSTANDING AND PERFORMED RETURN DEMONSTRATION. PATIENT ABLE TO REACH 1,000 ML.
[2019-03-25 22:07] VITALS: BP 159/75
--- NOTE | 2019-03-25 22:29 | NUR ---
Respiratory note: PT SEEN AND ASSESSED FOR PRN MED NEB TX AT 2229. TX NOT INDICATED AT THIS TIME. PT DISPLAYING NO SIGNS OF DISTRESS AT THIS TIME, PT STATED SHE FEELS OKAY RIGHT NOW. HR 73 RR 18 POX 99% ON 2L NASAL CANNULA. BREATH SOUNDS WERE CLEAR AND DIMINISHED BILATERALLY. PT AWARE TO CALL FOR RT IF ANY DISTRESS OCCURS.
[2019-03-26] VITALS (7 sets, daily range): BP systolic 121–184; BP diastolic 54–77
--- NOTE | 2019-03-26 00:42 | NUR ---
BP RECHECKED ONE HOUR AFTER PRN BP MEDICATION GIVEN. BP NOW 132/72, HR OF 75. PT HAS NO COMPLAINT OF CHEST PAIN. PT ASYMPTOMATIC. Addendum: 03/27/19 at 0207 by Tanna Ghotra RN CORRECT DATE IS 03/27/19
--- NOTE | 2019-03-26 03:50 | NUR ---
PATIENT AUDIBLY WHEEZING AND HAS S/S OF SOB, PULSE OXIMETER READING OF 94%, PATIENT IS ON 3 LITERS OF OXYGEN VIA NASAL CANNULA, RESPIRATORY THERAPIST CALLED AT THIS TIME FOR PRN BREATHING TREATMENT.
[2019-03-26] MEDS: MORPHINE SULF INJ 2 MG/ML SYRINGE 1ML IV PRN ×4 (03:52→23:40)
--- NOTE | 2019-03-26 04:00 | NUR ---
RESPIRATORY THERAPIST AT BEDSIDE WITH PATIENT.
[2019-03-26] MEDS: ALBUTEROL SULF 2.5 MG/0.5ML(0.5%) NEB SOLN NEB PRN ×3 (04:01→21:25)
[2019-03-26] MEDS: hydrALAZINE HCL 20 MG/ML VL IV PRN ×2 (04:01→23:42)
--- NOTE | 2019-03-26 04:01 | NUR ---
BP OF 184/77, HR OF 95, NOTED. WILL MEDICATE PATIENT WITH PRN BP MEDICATION,PT HAS NO COMPLAINTS OF CHEST PAIN AT THIS TIME.
--- NOTE | 2019-03-26 05:11 | NUR ---
PATIENT'S BP REASSESSED AFTER GIVING PRN BP MEDICATION, BP IS 134/54, HR OF 68.PT ASYMPTOMATIC AT THIS TIME.
--- NOTE | 2019-03-26 05:21 | NUR ---
[facility]SA SWAB SENT TO LAB AND SPUTUM SENT TO LAB FOR RESPIRATORY CULTURE AT THIS TIME.
[2019-03-26 06:08] LABS: Basophils # (auto) 0 uL; Eosinophils # (auto) 0 uL; Hemoglobin 8.4 g/dL (12.2-16.2); Monocytes # (auto) 0.7 uL; Monocytes % (auto) 9.2 % (0.0-12.0); Neutrophils # (auto) 5.4 uL; Nucleated Red Blood Cells % 0.1 %; Red Cell Distribution Width 18.3 % (11.8-14.3); White Blood Cell 7.8 10^3/uL (4.4-10.8)
[2019-03-26 06:10] LABS: Basophils % (auto) 0.2 % (0.0-2.0); Eosinophils % (auto) 0.4 % (0.0-7.0); Hematocrit 25.2 % (36.0-46.0); Lymphocytes # (auto) 1.6 uL; Lymphocytes % (auto) 20.7 % (10.0-50.0); Mean Corpuscular Hemoglobin 28.6 pg (28.0-32.0); Mean Corpuscular Hgb Conc. 33.4 g/dL (32.0-36.0); Mean Corpuscular Volume 85.7 fL (80.0-100.0); Neutrophils % (auto) 69.5 % (37.0-80.0); Platelet Count (auto) 280 10^3/uL (140-450); Red Blood Cells 2.94 10^6/uL (4.0-5.20)
[2019-03-26] MEDS: GABAPENTIN 300 MG CAP PO SCH ×3 (06:13→22:11)
[2019-03-26] MEDS: cloNIDine HCL 0.1 MG TAB PO SCH ×3 (06:13→22:12)
[2019-03-26 06:22] LABS: Albumin 2.7 g/dL (3.4-5.0); Calcium 8.1 mg/dL (8.5-10.1); Potassium 4.2 mmol/L (3.5-5.1)
[2019-03-26 06:26] LABS: BUN/Creatinine Ratio 22.9; Bilirubin, Total 0.3 mg/dL (0.2-1.0); Total Protein 6.9 g/dL (6.4-8.2)
[2019-03-26 06:28] LABS: INR 1.53 (0.9-1.15); Partial Thromboplastin Time 27.3 sec (23.64-32.05)
--- NOTE | 2019-03-26 07:00 | NUR ---
CLOSING NOTE No S/S of distress/SOB. Respirations even and unlabored. Patient is on 3 liters of oxygen via nasal cannula.
--- NOTE | 2019-03-26 07:00 | NUR ---
OPENING NOTE PATIENT AWAKE, ALERT AND ORIENTED. UNLABORED BREATHING, WHEEZING THROUGH. DENIES DISCOMFORT. POC EXPLAINED TO PATIENT. VERBALIZED UNDERSTANDING.
[2019-03-26] MEDS: FUROSEMIDE 40 MG/4 ML VIAL IV SCH (09:03)
[2019-03-26] MEDS: AZITHROMYCIN 500MG/ 250ML 250 ML IV SCH (09:03)
[2019-03-26] MEDS: CARVEDILOL 3.125 MG TAB PO SCH ×2 (09:06→22:11)
[2019-03-26] MEDS: PANTOPRAZOLE 40 MG TAB PO SCH (09:07)
[2019-03-26] MEDS: DONEPEZIL HYDROCHLORIDE 5 MG TAB PO SCH (09:07)
[2019-03-26] MEDS: ASPirin 81 mg TAB PO SCH (09:08)
[2019-03-26] MEDS: ALLOPURINOL 100 MG TAB PO SCH (09:08)
[2019-03-26] MEDS: CLOPIDOGREL BISULFATE 75 MG TAB PO SCH (09:08)
[2019-03-26] MEDS: amLODIPine BESYLATE 5 MG TAB PO SCH (09:08)
[2019-03-26] MEDS: ONDANSETRON HCL 4 MG/2 ML VIAL IV PRN ×3 (11:30→23:40)
--- NOTE | 2019-03-26 11:38 | NUR ---
NEW IV PLACED ON LEFT FOREARM. 22G
--- NOTE | 2019-03-26 12:03 | NUR ---
DOCTOR ANGELICA SAW THE PATIENT, NEW ORDERS WILL BE CARRIED OUT. PATIENT VERBALIZED UNDERSTANDING OF OPC.
[2019-03-26] MEDS: ALPRAZolam 0.25 MG TAB PO PRN ×2 (12:31→22:13)
--- NOTE | 2019-03-26 15:37 | NUR ---
NUCLEAR MED CALLED, VQ SCAN WILL NOT BE ABLE TO BE PERFORMED UNTIL MONDAY. CALLED DR DOMINGUEZ'S EXCHANGE AND RELATED THE MESSAGE.
[2019-03-26] MEDS ORDERED: WARFARIN SODIUM 2 MG TAB PO ONE (17:00)
--- NOTE | 2019-03-26 17:30 | NUR ---
PATIENT IN BED, RESTING. UNLABORED BREATHING, XANAX HELPED WITH ANXIETY. PATIENT DENIES DISCOMFORT.
--- NOTE | 2019-03-26 18:34 | NUR ---
REPORT GIVEN TO AWA LY SUPERVISOR WOUND
--- NOTE | 2019-03-26 20:05 | NUR ---
Opening Shift Note Assumed care of patient, awake and alert. No S/S of distress/SOB. Respirations even and unlabored. Patient is on 3 liters of oxygen via nasal cannula. Patient educated to use incentive spirometer 10 times per hour when awake. Patient verbalized understanding and performed return demonstration. Patient able to reach maximum of 1,000 ML. Instructed on POC and to call for assist PRN, will continue to monitor for changes Q1hr and PRN.
--- NOTE | 2019-03-26 21:15 | NUR ---
PATIENT REPORTS SOB AND AUDIBLE WHEEZING PRESENT. PULSE OXIMETER READING IS 97%. RESPIRATORY THERAPIST PAGED.
--- NOTE | 2019-03-26 21:25 | NUR ---
RESPIRATORY THERAPIST AT BEDSIDE WITH PATIENT.
--- NOTE | 2019-03-26 23:42 | NUR ---
BP OF 163/88, HR OF 69, NOTED. PT GIVEN PRN BP MEDICATION. PT HAS NO COMPLAINTS OF CHEST PAIN. PT ASYMPTOMATIC.
[2019-03-27 00:42] VITALS: BP 132/72
--- NOTE | 2019-03-27 00:42 | NUR ---
BP RECHECKED ONE HOUR AFTER PRN BP MEDICATION GIVEN. BP NOW 132/72, HR OF 75. PT HAS NO COMPLAINT OF CHEST PAIN. PT ASYMPTOMATIC.
[2019-03-27] MEDS: MORPHINE SULF INJ 2 MG/ML SYRINGE 1ML IV PRN ×4 (04:21→20:14)
[2019-03-27 05:00] VITALS: BP 132/58
[2019-03-27] MEDS: GABAPENTIN 300 MG CAP PO SCH ×3 (05:35→21:34)
[2019-03-27] MEDS: cloNIDine HCL 0.1 MG TAB PO SCH ×3 (05:37→21:34)
[2019-03-27 05:57] LABS: Basophils # (auto) 0 uL; Basophils % (auto) 0.3 % (0.0-2.0); Eosinophils # (auto) 0.2 uL; Eosinophils % (auto) 2.2 % (0.0-7.0); Hematocrit 25.9 % (36.0-46.0); Hemoglobin 8.5 g/dL (12.2-16.2); Lymphocytes # (auto) 1.3 uL; Lymphocytes % (auto) 17.4 % (10.0-50.0); Mean Corpuscular Hemoglobin 28.3 pg (28.0-32.0); Mean Corpuscular Hgb Conc. 32.7 g/dL (32.0-36.0); Mean Corpuscular Volume 86.5 fL (80.0-100.0); Monocytes # (auto) 0.6 uL; Monocytes % (auto) 8.4 % (0.0-12.0); Neutrophils # (auto) 5.3 uL; Neutrophils % (auto) 71.7 % (37.0-80.0); Nucleated Red Blood Cells % 0.1 %; Platelet Count (auto) 264 10^3/uL (140-450); Red Blood Cells 2.99 10^6/uL (4.0-5.20); Red Cell Distribution Width 18.2 % (11.8-14.3); White Blood Cell 7.4 10^3/uL (4.4-10.8)
[2019-03-27 06:12] LABS: INR 1.62 (0.9-1.15)
[2019-03-27 06:14] LABS: Albumin 2.6 g/dL (3.4-5.0); Calcium 7.7 mg/dL (8.5-10.1); Potassium 4.5 mmol/L (3.5-5.1)
[2019-03-27 06:17] LABS: Bilirubin, Total 0.3 mg/dL (0.2-1.0); Total Protein 6.8 g/dL (6.4-8.2)
[2019-03-27] MEDS: ALBUTEROL SULF 2.5 MG/0.5ML(0.5%) NEB SOLN NEB PRN ×3 (06:45→19:25)
--- NOTE | 2019-03-27 06:53 | NUR ---
CLOSING NOTE No S/S of distress/SOB. Respirations even and unlabored. Patient is on 3 liters of oxygen via nasal cannula.
--- NOTE | 2019-03-27 07:20 | NUR ---
REPORT FROM FORMATION FRACTURING OPERATORCLAY PROCESSING FACTORY WORKER PATIENT IN BED, RESTING. DENIES DISCOMFORT. POC EXPLAINED TO PATIENT. VERBALIZED UNDERSTANDING. CALL LIGHT WITH IN REACH, BED ON LOWEST POSITION FOR SAFETY.
[2019-03-27 09:00] VITALS: BP 151/55
[2019-03-27] MEDS: FUROSEMIDE 40 MG/4 ML VIAL IV SCH (09:42)
[2019-03-27] MEDS: ALLOPURINOL 100 MG TAB PO SCH (09:44)
[2019-03-27] MEDS: amLODIPine BESYLATE 5 MG TAB PO SCH (09:44)
[2019-03-27] MEDS: ASPirin 81 mg TAB PO SCH (09:45)
[2019-03-27] MEDS: CLOPIDOGREL BISULFATE 75 MG TAB PO SCH (09:46)
[2019-03-27] MEDS: DONEPEZIL HYDROCHLORIDE 5 MG TAB PO SCH (09:46)
[2019-03-27] MEDS: CARVEDILOL 3.125 MG TAB PO SCH ×2 (09:46→21:34)
[2019-03-27] MEDS: AZITHROMYCIN 500MG/ 250ML 250 ML IV SCH (09:47)
[2019-03-27] MEDS: PANTOPRAZOLE 40 MG TAB PO SCH (09:47)
[2019-03-27] MEDS: ALPRAZolam 0.25 MG TAB PO PRN ×2 (10:11→21:34)
--- NOTE | 2019-03-27 11:31 | NUR ---
PATIENT IN BED, RESTING. DENIES DISCOMFORT.
[2019-03-27 13:00] VITALS: BP 120/68
--- NOTE | 2019-03-27 14:10 | NUR ---
MORPHINE IV GIVEN FOR SHOULDER PAIN
[2019-03-27 16:57] VITALS: BP 141/55
[2019-03-27] MEDS ORDERED: WARFARIN SODIUM 1 MG TAB PO ONE (18:00)
--- NOTE | 2019-03-27 19:00 | NUR ---
OPENING NOTE- NOC SHIFT PATIENT IS ALERT AND ORIENTED X4, ANSWERS IN COMPLETE SENTENCES AND MAKES APPROPRIATE EYE CONTACT. PATIENT IS SITTING AT EDGE OF BED, DANGLING FEET. DISCUSSED POC WITH PATIENT AND INSTRUCTED PATIENT TO CALL PRN; PATIENT VERBALIZED UNDERSTANDING. WILL CONTINUE TO MONITOR Q1H AND PRN.
--- NOTE | 2019-03-27 19:33 | NUR ---
REPORT GIVEN TO NIGHT NURSE.
[2019-03-27 22:25] VITALS: BP 146/59
[2019-03-28] VITALS (7 sets, daily range): BP systolic 114–155; BP diastolic 42–91
[2019-03-28] MEDS: MORPHINE SULF INJ 2 MG/ML SYRINGE 1ML IV PRN ×5 (01:51→21:47)
[2019-03-28 05:53] LABS: Basophils # (auto) 0 uL; Basophils % (auto) 0.3 % (0.0-2.0); Eosinophils # (auto) 0.2 uL; Hematocrit 25.4 % (36.0-46.0); Hemoglobin 8.5 g/dL (12.2-16.2); Lymphocytes # (auto) 1.1 uL; Lymphocytes % (auto) 15.4 % (10.0-50.0); Mean Corpuscular Hemoglobin 28.7 pg (28.0-32.0); Mean Corpuscular Hgb Conc. 33.2 g/dL (32.0-36.0); Mean Corpuscular Volume 86.3 fL (80.0-100.0); Monocytes # (auto) 0.6 uL; Monocytes % (auto) 7.6 % (0.0-12.0); Neutrophils # (auto) 5.4 uL; Neutrophils % (auto) 73.7 % (37.0-80.0); Nucleated Red Blood Cells % 0.1 %; Platelet Count (auto) 252 10^3/uL (140-450); Red Blood Cells 2.95 10^6/uL (4.0-5.20); Red Cell Distribution Width 18.1 % (11.8-14.3); White Blood Cell 7.4 10^3/uL (4.4-10.8)
[2019-03-28 06:02] LABS: INR 1.66 (0.9-1.15)
[2019-03-28 06:05] LABS: Albumin 2.7 g/dL (3.4-5.0); Calcium 7.8 mg/dL (8.5-10.1); Potassium 4.5 mmol/L (3.5-5.1)
[2019-03-28 06:08] LABS: BUN/Creatinine Ratio 21.2; Bilirubin, Total 0.3 mg/dL (0.2-1.0); Total Protein 6.9 g/dL (6.4-8.2)
[2019-03-28] MEDS: cloNIDine HCL 0.1 MG TAB PO SCH ×3 (06:31→21:47)
[2019-03-28] MEDS: GABAPENTIN 300 MG CAP PO SCH ×3 (06:31→21:48)
--- NOTE | 2019-03-28 08:00 | NUR ---
ASSESSMENT NOTE PT IS ALERT ORIENTED X4, SITTING AT THE SIDE OF THE BED, NO DISTRESS NOTED, PT STATED I THING I DID CAUGHT COLD HERE, ITS TOO COLD AT NIGHT > PROVIDED PT WITH EXTRA BLANKETS, MADE AWARE THAT I WILL TRY TO FIND A JACKET OR A SWEATER FROM THE STORAGE ROOM TO KEEP HER WARM, PAIN 0/10 AT THIS TIME, CALL LIGHT WITHIN REACH
[2019-03-28] MEDS: AZITHROMYCIN 500MG/ 250ML 250 ML IV SCH (09:10)
[2019-03-28] MEDS: DONEPEZIL HYDROCHLORIDE 5 MG TAB PO SCH (09:11)
[2019-03-28] MEDS: FUROSEMIDE 40 MG/4 ML VIAL IV SCH (09:11)
[2019-03-28] MEDS: ALLOPURINOL 100 MG TAB PO SCH (09:11)
[2019-03-28] MEDS: PANTOPRAZOLE 40 MG TAB PO SCH (09:12)
[2019-03-28] MEDS: ASPirin 81 mg TAB PO SCH (09:12)
[2019-03-28] MEDS: CARVEDILOL 3.125 MG TAB PO SCH ×2 (09:14→21:47)
[2019-03-28] MEDS: CLOPIDOGREL BISULFATE 75 MG TAB PO SCH (09:14)
[2019-03-28] MEDS: amLODIPine BESYLATE 5 MG TAB PO SCH (09:15)
--- NOTE | 2019-03-28 09:20 | NUR ---
Respiratory note: ROUTINE PRN MN TX ASSESSMENT DONE. HR 54, RR 18, POX 100% ON 3L NC, BREATH SOUNDS ARE CLEAR. NO SOB OR DISTRESS NOTED. PT WAS NOTIFY TO HAVE RN PAGE RT FOR NEEDED MN TX.
--- NOTE | 2019-03-28 15:00 | NUR ---
PT IS USING THE INCENTIVE SPIROMETR
--- NOTE | 2019-03-28 16:00 | NUR ---
PT AMBULATE TO BATHROOM NEEDED
[2019-03-28] MEDS ORDERED: WARFARIN SODIUM 1 MG TAB PO ONE (17:00)
--- NOTE | 2019-03-28 19:01 | NUR ---
PT CONTINUE STALE, CONTINUE MONITORING
[2019-03-28] MEDS ORDERED: DEXTROSE (50%) 50ML SYRG IV PRN (19:30)
--- NOTE | 2019-03-28 19:30 | NUR ---
Opening Shift Note Assumed care of patient, awake and alert. No S/S of distress/SOB or pain. Instructed on POC and to call for assist PRN. Bed in lowest locked position, call light within reach, side rails up x2, fall precautions in place. Will continue to monitor for changes Q1hr and PRN.
[2019-03-28] MEDS: ALPRAZolam 0.25 MG TAB PO PRN (20:18)
[2019-03-28] MEDS: InsuLIN REG 1unit/0.01ml Soln (100units/ml) SC SCH (21:48)
[2019-03-28] MEDS: ACCU-CHEK COMFORT CURVE STRIP VI SCH (21:48)
--- NOTE | 2019-03-28 22:00 | NUR ---
Rounds Patient complaining of room being cold, informed patient that thermostat is all the way up in heat. Informed patient that I would make rn relief charge aware.
--- NOTE | 2019-03-28 22:10 | NUR ---
Rounds locks inspector aware of patient complaining of room being cold. Per charge, call engineering to come fix thermostat. Called engineering and per engineering, will come to check thermostat out.
--- NOTE | 2019-03-28 23:10 | NUR ---
Rounds Spoke with patient, per patient engineering came twice to look at thermostat. Patient still complaining of room being cold and states "I'm not sure if they're going come back because they didn't tell me anything." Informed patient if she would like me to inform charge nurse for any other open room availabilities. Patient stated "No, I think I'll just wait until the morning, I just want to go to sleep and if they find an open room for me, I don't want to change rooms this late at night." Offered patient an extra blanket, patient declined and said "No I'll just put this sweater on and get covered up". Will continue care.
[2019-03-29] MEDS: MORPHINE SULF INJ 2 MG/ML SYRINGE 1ML IV PRN ×5 (02:04→22:12)
--- NOTE | 2019-03-29 02:30 | NUR ---
IV insertion IV access obtained, via clean sterile technique by inserting 22 gauge catheter at right forearm after 2 attempt(s). IV secured properly. No trauma to site. Patient tolerated well. NOTE: Previous IV leaking. IV discontinued, catheter intact, pressure dressing applied. Patient tolerated well.
[2019-03-29 05:00] VITALS: BP 145/65
[2019-03-29 05:48] LABS: Basophils # (auto) 0 uL; Basophils % (auto) 0.6 % (0.0-2.0); Eosinophils # (auto) 0.3 uL; Eosinophils % (auto) 3.3 % (0.0-7.0); Hematocrit 29.2 % (36.0-46.0); Hemoglobin 9.5 g/dL (12.2-16.2); Lymphocytes # (auto) 1.5 uL; Lymphocytes % (auto) 18.4 % (10.0-50.0); Mean Corpuscular Hemoglobin 27.9 pg (28.0-32.0); Mean Corpuscular Hgb Conc. 32.4 g/dL (32.0-36.0); Mean Corpuscular Volume 86.2 fL (80.0-100.0); Monocytes # (auto) 0.6 uL; Monocytes % (auto) 7.5 % (0.0-12.0); Neutrophils # (auto) 5.8 uL; Neutrophils % (auto) 70.2 % (37.0-80.0); Platelet Count (auto) 291 10^3/uL (140-450); Red Blood Cells 3.39 10^6/uL (4.0-5.20); Red Cell Distribution Width 17.9 % (11.8-14.3); White Blood Cell 8.2 10^3/uL (4.4-10.8)
--- NOTE | 2019-03-29 05:58 | NUR ---
PT ASSESSED FOR PRN HHN TX. PT IS ON 3LNC, SPO2 98 5, HR 67, RR 18. NO S/S OF RESPIRATORY DISTRESS. PT AWARE TO HAVE RT PAGED IF TX INDICATED.
[2019-03-29 06:04] LABS: INR 1.73 (0.9-1.15)
[2019-03-29 06:13] LABS: Potassium 4.4 mmol/L (3.5-5.1)
[2019-03-29] MEDS: cloNIDine HCL 0.1 MG TAB PO SCH ×3 (06:18→22:04)
[2019-03-29] MEDS: GABAPENTIN 300 MG CAP PO SCH ×3 (06:20→22:05)
[2019-03-29] MEDS: InsuLIN REG 1unit/0.01ml Soln (100units/ml) SC SCH ×4 (06:20→22:00)
[2019-03-29] MEDS: ACCU-CHEK COMFORT CURVE STRIP VI SCH ×4 (06:20→22:12)
[2019-03-29 06:21] LABS: Albumin 3.1 g/dL (3.4-5.0); BUN/Creatinine Ratio 18.2; Bilirubin, Total 0.4 mg/dL (0.2-1.0); Calcium 8.4 mg/dL (8.5-10.1); Total Protein 7.8 g/dL (6.4-8.2)
--- NOTE | 2019-03-29 07:15 | NUR ---
Opening Shift Note Assumed care of patient, awake and alert. No S/S of distress/SOB or pain. Instructed on POC and to call for assist PRN, will continue to monitor for changes Q1hr and PRN. Fall precautions in place per safety protocol.
[2019-03-29] MEDS ORDERED: ADENOSINE 93 MG in GIVE UN-DILUTED 0 ML IV STA (08:17)
--- NOTE | 2019-03-29 08:45 | NUR ---
Director Electrical Engineering at bedside MD Raza at bedside, aware of patient status. New orders for rocephin BID received, will carry out new orders and will cont to monitor patient.
[2019-03-29 09:00] VITALS: BP 144/72
[2019-03-29] MEDS: PANTOPRAZOLE 40 MG TAB PO SCH (10:00)
[2019-03-29] MEDS: cefTRIAXone 1GM/50ML D5W 50 ML IV SCH ×2 (12:02→20:52)
[2019-03-29] MEDS: ASPirin 81 mg TAB PO SCH (12:03)
[2019-03-29] MEDS: FUROSEMIDE 40 MG/4 ML VIAL IV SCH (12:03)
[2019-03-29] MEDS: AZITHROMYCIN 500MG/ 250ML 250 ML IV SCH (12:03)
[2019-03-29] MEDS: DONEPEZIL HYDROCHLORIDE 5 MG TAB PO SCH (12:04)
[2019-03-29] MEDS: CARVEDILOL 3.125 MG TAB PO SCH ×2 (12:05→22:05)
[2019-03-29] MEDS: CLOPIDOGREL BISULFATE 75 MG TAB PO SCH (12:05)
[2019-03-29] MEDS: amLODIPine BESYLATE 5 MG TAB PO SCH (12:06)
[2019-03-29] MEDS: ALLOPURINOL 100 MG TAB PO SCH (12:06)
[2019-03-29 13:00] VITALS: BP 152/79
--- NOTE | 2019-03-29 13:00 | NUR ---
Called MD Fung to clarify discharge orders as MD Raza ordered Stress test and new IV ABx. Waiting call back at this time.
--- NOTE | 2019-03-29 16:00 | NUR ---
Discharge planning per consult, patient has orders to dc with home health. Patient was given choices and chose [facility] [phone] home [facility], choice letter is in the chart. Referral sent, received a follow up call from [facility] and was advised that they will accept this patient onto services and start of care will be within 24-48 hours upon discharge. Addendum: 03/29/19 at 1604 by PIETER MOLINA Amended: Links added.
[2019-03-29 17:00] VITALS: BP 158/87
[2019-03-29] MEDS ORDERED: WARFARIN SODIUM 2 MG TAB PO ONE (17:30)
--- NOTE | 2019-03-29 19:16 | NUR ---
Endorsed care Care endorsed to night RN Heidi. Patient resting in bed, no distress, sob, or pain noted at this time.
--- NOTE | 2019-03-29 19:21 | NUR ---
Called/paged Dr. Fung called regarding clarification for pending discharge and pending stress test results to be read. Waiting for call back. Continue care.
--- NOTE | 2019-03-29 19:45 | NUR ---
re pagd Re paged Dr. Fung regarding clarification for pending discharge and pending stress test results to be read. Waiting for call back. Continue care.
[2019-03-29] MEDS: ALPRAZolam 0.25 MG TAB PO PRN (19:55)
--- NOTE | 2019-03-29 19:55 | NUR ---
returned call Dr. Fung returned call, updated on patient status and reason for call. Per MD, hold discharge until tomorrow once stress test results have been read. Will continue care.
[2019-03-29 22:00] VITALS: BP 146/65
--- NOTE | 2019-03-29 22:16 | NUR ---
Respiratory note: ASSESSED PT FOR PRN MED NEB AT THIS TIME, PT DENIES SOB AT THIS TIME, NO RESP DISTRESS NOTED, NO TX INDICATED. PULSE OX 96% ON 2LNC, HR 74, RR 18
[2019-03-29] MEDS: hydrALAZINE HCL 20 MG/ML VL IV PRN (23:17)
[2019-03-30 05:00] VITALS: BP 147/60
[2019-03-30] MEDS: MORPHINE SULF INJ 2 MG/ML SYRINGE 1ML IV PRN ×2 (05:45→10:21)
[2019-03-30] MEDS: GABAPENTIN 300 MG CAP PO SCH (06:24)
[2019-03-30] MEDS: cloNIDine HCL 0.1 MG TAB PO SCH (06:24)
[2019-03-30] MEDS: ACCU-CHEK COMFORT CURVE STRIP VI SCH ×2 (06:25→11:30)
[2019-03-30] MEDS: InsuLIN REG 1unit/0.01ml Soln (100units/ml) SC SCH ×2 (06:25→11:30)
[2019-03-30 06:39] LABS: Basophils # (auto) 0.1 uL; Basophils % (auto) 0.7 % (0.0-2.0); Eosinophils # (auto) 0.2 uL; Eosinophils % (auto) 2.7 % (0.0-7.0); Hematocrit 30.7 % (36.0-46.0); Hemoglobin 9.9 g/dL (12.2-16.2); Lymphocytes # (auto) 1.5 uL; Lymphocytes % (auto) 20.4 % (10.0-50.0); Mean Corpuscular Hemoglobin 27.9 pg (28.0-32.0); Mean Corpuscular Hgb Conc. 32.4 g/dL (32.0-36.0); Monocytes # (auto) 0.6 uL; Neutrophils # (auto) 5.1 uL; Neutrophils % (auto) 68.2 % (37.0-80.0); Platelet Count (auto) 294 10^3/uL (140-450); Red Blood Cells 3.57 10^6/uL (4.0-5.20); Red Cell Distribution Width 17.9 % (11.8-14.3); White Blood Cell 7.4 10^3/uL (4.4-10.8)
[2019-03-30 06:52] LABS: Albumin 2.6 g/dL (3.4-5.0); Calcium 8.7 mg/dL (8.5-10.1); Potassium 4.3 mmol/L (3.5-5.1)
[2019-03-30 06:55] LABS: BUN/Creatinine Ratio 16.7; Bilirubin, Total 0.4 mg/dL (0.2-1.0)
[2019-03-30 09:00] VITALS: BP 159/57
--- NOTE | 2019-03-30 09:29 | NUR ---
Respiratory note: ASSESSED PT. FOR PRN BREATHING TX. NOT TX GIVEN AT THIS TIME, PT IS AWAKE AND ALERT. NO RESPIRATORY DISTRESS NOTED OR STATED. PATIENT IS CURRENTLY ON ROOM AIR SPO2 91%, RR 18, HR 78. PATIENT IS AWARE TO HAVE RT PAGED IF BREATHING TX IS NEEDED. WILL CONTINUE TO MONITOR PATIENT.
[2019-03-30] MEDS: AZITHROMYCIN 500MG/ 250ML 250 ML IV SCH (09:33)
[2019-03-30] MEDS: cefTRIAXone 1GM/50ML D5W 50 ML IV SCH (09:34)
[2019-03-30] MEDS: ASPirin 81 mg TAB PO SCH (09:35)
[2019-03-30] MEDS: FUROSEMIDE 40 MG/4 ML VIAL IV SCH (09:35)
[2019-03-30] MEDS: ALLOPURINOL 100 MG TAB PO SCH (09:35)
[2019-03-30] MEDS: DONEPEZIL HYDROCHLORIDE 5 MG TAB PO SCH (09:35)
[2019-03-30] MEDS: amLODIPine BESYLATE 5 MG TAB PO SCH (09:36)
[2019-03-30] MEDS: CLOPIDOGREL BISULFATE 75 MG TAB PO SCH (09:36)
[2019-03-30] MEDS: PANTOPRAZOLE 40 MG TAB PO SCH (09:36)
[2019-03-30] MEDS: CARVEDILOL 3.125 MG TAB PO SCH (09:37)
--- NOTE | 2019-03-30 10:43 | NUR ---
MD Raza at bedside, orders for discharge received, will carry out new orders.
[2019-03-30 12:47] VITALS: BP 144/66
[2019-03-30 13:00] VITALS: BP 144/66
--- NOTE | 2019-03-30 13:19 | NUR ---
Discharge instructions given as ordered. Encourage to follow up with PMD as instructed. All questions and concerns addressed. Patient verbalized understanding. Medication reconciliation form completed and copy given to patient. IV removed with catheter intact, pressure dressing applied. Telemetry unit returned to ICU. Patient walked to vehicle with all personal belongings, accompanied by family members. States she did not want to go in a wheelchair. No distress noted at time of departure.
[2019-03-30] MEDS ORDERED: WARFARIN SODIUM 2.5 MG TAB PO ONE (17:00)
== END 2019-03-30 13:15 | disposition home health service (06) | DRG 193 ==
LOC: EDBD 12:03 → ER 12:03 → TELE 12:04 → TELE-EAST 18:20
PROVIDERS: ADMIT Internal Medicine; ATTEND Internal Medicine
DX: J18.9 Pneumonia, unspecified organism (principal); J96.21 Acute and chronic respiratory failure with hypoxia; J44.1 Chronic obstructive pulmonary disease with (acute) exacerbation; I50.22 Chronic systolic (congestive) heart failure; I25.110 Atherosclerotic heart disease of native coronary artery with unstable angina pectoris; D68.59 Other primary thrombophilia; I82.499 Acute embolism and thrombosis of other specified deep vein of unspecified lower extremity; E11.40 Type 2 diabetes mellitus with diabetic neuropathy, unspecified; K21.9 Gastro-esophageal reflux disease without esophagitis; I11.0 Hypertensive heart disease with heart failure; F32.9 Major depressive disorder, single episode, unspecified; M19.90 Unspecified osteoarthritis, unspecified site; F41.9 Anxiety disorder, unspecified; I27.20 Pulmonary hypertension, unspecified; I44.7 Left bundle-branch block, unspecified; Z95.5 Presence of coronary angioplasty implant and graft; Z91.19 Patient's noncompliance with other medical treatment and regimen; Z99.81 Dependence on supplemental oxygen; I25.2 Old myocardial infarction; Z79.899 Other long term (current) drug therapy; Z87.891 Personal history of nicotine dependence; Z79.01 Long term (current) use of anticoagulants
CPT/HCPCS: 36415; 71045; 71250; 78452; 80053; 81001; 82962; 83036; 83605; 83735; 83880; 84484; 85025; 85610; 85730; 87040; 87070; 87081; 87205; 87804; 93005; 93017; 93306; 94640; 94644; 96365; 96375; G0378; J0153; J0696; J1815; J2405